=== PATIENT | male | born 1985 | race Two or more races ===

== ENCOUNTER 2024-10-21 15:00 | Outpatient (RCR) | payer MEDICAID, SELFPAY ==
--- NOTE | 2024-10-11 12:53 | PT.ODAYNRPT ---
PT Outpatient Daily Note OP Daily Note Outpatient Physical Therapy Treatment Date: 10/11/24 Visit Reasons: Pain in Ankle Subjective: Pt recently seen doctor and he wants patient to continue physical therapy for disability purposes. Overall ankle is feeling better no new concerns to report Objective: Please see flow chart for list of ther ex performed Assessment: added more balance exercises using airex foam with good dynamic balance noted Plan: Continue with PT Length of Time (minutes) of Treatment: 30 Minutes Procedure Charges Therapeutic Exercise 30 minutes: Yes
--- NOTE | 2024-10-14 10:06 | PT.ODAYNRPT ---
PT Outpatient Daily Note OP Daily Note Outpatient Physical Therapy Treatment Date: 10/14/24 Visit Reasons: Pain in Ankle Subjective: No new complaints or concerns. Objective: Please see flow sheet for ther ex list. Assessment: Focus on restoring motion and strength, pt tolerated interventions wwell. Plan: Continue with POC. Length of Time (minutes) of Treatment: 30 Minutes Procedure Charges Therapeutic Exercise 30 minutes: Yes
--- NOTE | 2024-10-18 09:35 | PT.ODAYNRPT ---
PT Outpatient Daily Note OP Daily Note Outpatient Physical Therapy Treatment Date: 10/18/24 Visit Reasons: Pain in Ankle Subjective: Pt reports ankle is progressing. Objective: Please see flow sheet for ther ex list. Assessment: Instructed pt on forward lunge, pt able to completed with good technique. Plan: Continue with POC. Length of Time (minutes) of Treatment: 30 Minutes Procedure Charges Therapeutic Exercise 30 minutes: Yes
--- NOTE | 2024-10-21 15:24 | PT.ODAYNRPT ---
PT Outpatient Daily Note OP Daily Note Outpatient Physical Therapy Treatment Date: 10/21/24 Visit Reasons: Pain in Ankle Subjective: Pt's ankle is better and does not have any concerns. Objective: Please see flow chart for list of ther ex performed Assessment: tolerate exercises performed with minimal pain Plan: Continue with PT Length of Time (minutes) of Treatment: 30 Minutes Procedure Charges Therapeutic Exercise 30 minutes: Yes
--- NOTE | 2024-11-21 12:51 | PTNOTE_ITS ---
PT OP Progress/Discharge Note Date of Service: 11/21/24 Progress Note/DC Note Progress Note/Discharge Note: DC Note Patient Information Visit Reasons: Pain in Ankle Service Discharge Date: 11/21/24 Status Assessment: Pt has been seen for 7 visits (eval + 6 visits). Pt last treated on 10/21/24 and has not return to therapy. At this time Pt will be d/c from care due to non- compliance per attendance policy. Pt did not meet set goals in therapy; thank you for your referrals
== END 2024-10-29 23:59 | disposition home or self-care (01) ==
LOC: CPTX 15:00
PROVIDERS: PCP Podiatrist; Referring Provider Podiatrist; Visit Provider Podiatrist
DX: M25.572 Pain in left ankle and joints of left foot (principal); R26.2 Difficulty in walking, not elsewhere classified; R53.1 Weakness; G89.29 Other chronic pain
CPT/HCPCS: 97110

== ENCOUNTER 2025-03-05 19:11 | Emergency (ER) | payer MEDICAID, SELFPAY ==
[2025-03-05 19:13] VITALS: BMI 29.8
[2025-03-05 19:30] VITALS: BP 116/74; PULSE 71; RESP 20; TEMP 36.6; O2SAT 98
--- NOTE | 2025-03-05 20:54 | PC.NURSE ---
STAFF CALLED PATIENT IN THE LOBBY AND OUTSIDE. PER SECURITY STAFF PATIENT AND FAMILY STATED THAT THEY WERE LEAVING BECAUSE THE WAIT WAS GOING TO BE TOO LONG HERE. THAT THEY WERE GOING TO GO SOMEWHERE ELSE.
--- NOTE | 2025-03-05 21:04 | PD.EDADDENDU ---
Emergency Room Addendum Addendum Narrative: I was told the patient eloped before I saw the patient. Issa Rodrigez MD
== END 2025-03-05 21:04 | disposition left against medical advice (07) ==
PROVIDERS: Emergency Provider Emergency Medicine
DX: Z53.21 Procedure and treatment not carried out due to patient leaving prior to being seen by health care provider (principal)
CPT/HCPCS: 99281

== ENCOUNTER → 2025-03-21 | Outpatient (CLI) | payer MEDICAID, SELFPAY ==
--- NOTE | 2025-03-21 10:01 | XR_ITS ---
Examination: CT chest with intravenous contrast CT abdomen with intravenous contrast CT pelvis with intravenous contrast CT chest without intravenous contrast CT abdomen without intravenous contrast CT pelvis without intravenous contrast 2-D coronal and sagittal reconstructions Time of exam: March 21, 2025 1149 hours INDICATIONS: Bilateral leg pain history pelvic lesion beginning January 2025 CTDI: vol (mGy) : 13.9 DLP: (mGycm): 1069 Technique: Multiple axial images of the chest, abdomen and pelvis with intravenous contrast, 3.0 mm slice thickness. Images obtained post intravenous injection Isovue 370 60 cc. 2-D sagittal and coronal reconstructions. Low dose protocols were performed. One or more of the following dose reduction techniques were used; automated exposure control, adjustment of the mA and/or KV according to patient size, use of iterative reconstruction technique. Findings: 12 mm higher left periaortic lymph node 24 mm left tracheobronchial lymph node Mild left hilar lymphadenopathy 14 mm nodule spiculated margins left midlung image 1:30 No pneumonia or pulmonary edema No focal liver or splenic lesions No gallstones No pancreatic or adrenal mass No renal or ureteral calculi Abundant pericaval periaortic lymphadenopathy, the largest lymph node left lateral periaortic measuring 36 mm Extensive common iliac internal iliac and especially left external iliac lymphadenopathy No bowel obstruction Urinary bladder intact Prostatomegaly AP dimension 4.8 cm with enhancing nodule anterior right margin of the prostate 25 mm Subtle diffuse osteolytic lesions involving vertebral bodies, ribs, bones of the pelvis IMPRESSION: Significant mediastinal lymphadenopathy 14 mm nodule spiculated margins left midlung Extensive abdominal and pelvic lymphadenopathy 25 mm enhancing right prostate nodule Diffuse osteolytic lesions, consider MRI cervical thoracic lumbar spine post contrast follow-up Differential would include metastatic lymphadenopathy, Hodgkin's disease, non-Hodgkin's lymphoma
== END | disposition home or self-care (01) ==
LOC: CCTX 09:43
PROVIDERS: PCP Physician Assistant Medical; Referring Provider Physician Assistant Medical; Visit Provider Physician Assistant Medical
DX: R59.0 Localized enlarged lymph nodes (principal); R91.1 Solitary pulmonary nodule; N40.2 Nodular prostate without lower urinary tract symptoms; M89.58 Osteolysis, other site
CPT/HCPCS: 71270; 74178; A4649; Q9967

== ENCOUNTER 2025-03-27 14:02 | Outpatient (RCR) | payer MEDICAID, SELFPAY | END 2025-03-29 23:59 | disposition home or self-care (01) | LOC: SCTC 14:02 | PROVIDERS: PCP Physician Assistant Medical; Referring Provider Physician Assistant Medical; Visit Provider Radiology Therapeutic Radiology | DX: C61 Malignant neoplasm of prostate (principal); C79.51 Secondary malignant neoplasm of bone | CPT/HCPCS: 99214; G0463 ==

== ENCOUNTER → 2025-03-28 | Outpatient (CLI) | payer MEDICAID, SELFPAY ==
--- NOTE | 2025-03-28 15:30 | XR_ITS ---
EXAMINATION: PET/CT FUSION SKULL TO THIGH EXAM DATE AND TIME: March 28, [address] chest abdomen pelvis March 21, 2025 INDICATIONS: Diagnosis prostate cancer, staging prior to treatment CTDI:vol (mGy) 5.19 DLP: (mGycm) 474 PROCEDURE: 16.5 mCi FDG was administered intravenously To allow for distribution and uptake of radiotracer, the patient was allowed to rest quietly in a shielded room. Imaging was performed on an integrated 16-slice PET/CT scanner, with scanning from the skull base to the mid thigh. Serum blood glucose at the time of the injection was measured 110 mg/dL. CT scanning was performed without oral or intravenous contrast material. FINDINGS: Head and Neck: There is no kai hypermetabolism in the neck. The visualized portions of the brain are normal in appearance on CT. Chest: Non hypermetabolic high periaortic bilateral hilar lymphadenopathy Weakly hypermetabolic 24 mm nodule left midlung axial image 91 Abdomen and Pelvis: Extensive weakly hypermetabolic abdominal and pelvic lymphadenopathy, the largest left lateral periaortic lymph node measuring 36 mm Extensive common iliac internal iliac and especially left external iliac lymphadenopathy, the largest lymph node in the pelvis is in the external iliac chain on the left measuring 30 mm hypermetabolic Diffusely weakly hypermetabolic prostate nodules Musculoskeletal: All visualized bones demonstrate hypermetabolic activity. IMPRESSION: Extensive metastatic mediastinal, abdominal and pelvic lymphadenopathy as above Widespread osseous metastatic disease
== END | disposition home or self-care (01) ==
PROVIDERS: PCP Physician Assistant Medical; Referring Provider Physician Assistant Medical; Visit Provider Physician Assistant Medical
DX: R59.0 Localized enlarged lymph nodes (principal); C79.9 Secondary malignant neoplasm of unspecified site; C79.51 Secondary malignant neoplasm of bone
CPT/HCPCS: 78815; A9552

== ENCOUNTER 2025-03-30 08:07 | Outpatient (CLI) | payer MEDICAID, SELFPAY ==
[2025-03-29 11:10] LABS: Basophils % (Auto) 1 % (0-2.5); Eosinophils # (Auto) 0.1 Thou/mm3 (0.0-0.5); Eosinophils % (Auto) 1 % (0-10); Hematocrit 22.4 % (41.0-53.0); Immature Granulocytes % (Auto) 11 % (0-0); Lymphocytes # (Auto) 1.8 Thou/mm3 (1.0-4.8); Lymphocytes % (Auto) 25 % (10-50); Mean Corpuscular HGB Conc 34.4 g/dl (31.0-37.0); Mean Corpuscular Hemoglobin 26.9 pg (25.0-35.0); Mean Corpuscular Volume 78 fL (80-100); Monocytes # (Auto) 0.8 Thou/mm3 (0.0-0.8); Monocytes % (Auto) 11 % (0-12); Neutrophils # (Auto) 3.6 Thou/mm3 (1.8-7.7); Neutrophils % (Auto) 51 % (37-80); Nucleated Red Blood Cell # 0.29 Thou/mm3 (0.00-0.00); Nucleated Red Blood Cell % 4 /100 WBC (0); RDW Standard Deviation 42.4 fL (35.1-43.9); Red Blood Count 2.86 Miln/mm3 (4.50-5.90); White Blood Count 7.1 Thou/mm3 (3.8-10.6)
[2025-03-29 11:15] LABS: Hemoglobin 7.7 g/dL (13.5-16.0); Platelet Count 60 Thou/mm3 (140-440)
[2025-03-29 11:16] LABS: INR 1.2 (0.9-1.3); Partial Thromboplastin Time 36.2 Seconds (22.0-36.0); Prothrombin Time 12.6 Seconds (9.0-12.2)
[2025-03-29 13:06] LABS: Slide Review Platelets confirmed
[2025-03-29 13:10] LABS: Path Review Blood Smear Sent to Pathologist
[2025-03-30] VITALS (8 sets, daily range): BP systolic 124–147; BP diastolic 71–88; PULSE 98–107; RESP 18–100; TEMP 36.7–36.9; O2SAT 20–98; BMI 27.7
--- NOTE | 2025-03-30 08:30 | XR_ITS ---
Examination: Transrectal prostate biopsies Transrectal prostate sonography Exam date and time: March 30, 2025 at 0904 hours INDICATIONS: Diagnosis prostate cancer, staging prior to treatment, widespread mediastinal abdominal pelvic lymphadenopathy osseous metastatic disease on PET CT scan March 28, 2025 TECHNIQUE AND FINDINGS: Informed consent provided. Timeout performed. Utilizing ultrasonographic guidance 3 core biopsies obtained of the right lobe the prostate and 3 core biopsies obtained left lobe of the prostate Estimated blood loss 2 cc Patient stable condition at completion procedure IMPRESSION: Successful ultrasound-guided transrectal prostate biopsies
[2025-03-30] MEDS: fentaNYL CIT INJ 50 mCg/ML AMP 2ML IVP (09:20)
[2025-03-30] MEDS: LIDOCAINE JELLY 2% (Urojet) 10 ML TUBE TOP (09:20)
--- NOTE | 2025-03-30 11:23 | PC.NURSE ---
0938: Pt received for recovery. Report from Missy SINGLETON. Pt groggy, but awake. Resp even, unlabored. VS stable. Denies pain. 1005: Pt more alert. VS stable. Denies pain. Sitting up tolerating po fluids with no difficulty swallowing and no n/v. at bedside. 1025: Pt stated he needed to use restroom. Assisted to restroom. Ambulation steady. 1055: Pt has been in restroom. Unable to void. Pt assisted back to [facility]. Bladder palpated and is soft. Dr. García notified. New order to send to ER for follow up. 1100: Pt transferred to ER. Report to Isabella SINGLETON.
== END 2025-03-30 11:00 | disposition home or self-care (01) ==
PROVIDERS: Radiology Diagnostic Radiology; PCP Physician Assistant Medical; Referring Provider Physician Assistant Medical; Visit Provider Physician Assistant Medical
DX: C61 Malignant neoplasm of prostate (principal); N42.32 Atypical small acinar proliferation of prostate; Z01.812 Encounter for preprocedural laboratory examination
CPT/HCPCS: 55700; 36415; 76942; 85025; 85610; 85730; A4649; J3010

== ENCOUNTER 2025-03-30 11:17 | Inpatient (IN) | payer MEDICAID, SELFPAY ==
[2025-03-30] VITALS (11 sets, daily range): BP systolic 132–157; BP diastolic 73–93; PULSE 87–117; RESP 16–28; TEMP 36.1–37.4; O2SAT 93–98; BMI 27.9; BMI 28.1
--- NOTE | 2025-03-30 11:30 | EDNOTE_ITS ---
ED General RME/HPI General Chief complaint: Urogenital-Male Stated complaint: DIFFICULTY URINATING S/P PROSTATE BIOPSY Time Seen by Provider: 03/30/25 11:20 Arrival date/time: 03/30/25 11:17 RME / HPI RME / HPI narrative: 39-year-old male patient with significant history of prostate problem, was sent to us from [facility] status post prostate biopsy. Patient was noted to have blood with urination post prostate biopsy. Patient also complained of passing blood clots, with urination. Also complained of unable to urinate from time to time. Patient also complaining of diarrhea after the biopsy. Denies any abdominal pain denies any chest pain denies any other complaints. Patient is ambulatory. With a walker Related Data Allergies Allergy/AdvReac Type Severity Reaction Status Date / Time cephalexin Allergy Rash Verified 03/30/25 09:48 Review of Systems Review of Systems Narrative Review of Systems: Review of system reviewed and within normal limits except mentioned in HPI ED Exam Narrative Physical exam: VITAL SIGNS: Reviewed. GENERAL APPEARANCE: Alert and interactive, follows commands, no acute distress, HEAD AND FACE: Non-traumatic. ENT: PERRL, pink conjunctivitis, eyelid no trauma, Mucous membrane moist. NECK: Supple, nontender, no nuchal rigidity. CHEST: No tenderness, no crepitus, no paradoxical movement, no retractions. LUNGS: Clear, well ventilated, symmetric, no rales, no wheezing, no ronchi, no stridor, good breath sounds bilaterally. HEART: Regular rate, regular rhythm, no murmur, no gallops. ABDOMEN: Soft, positive bowel sounds, nondistended, no guarding, nontender, no rebound, no masses, RECTAL: Deferred. GENITAL: Deferred. NEUROLOGICAL: Gross motor function intact sensory function intact, Appropriate for age. MUSCULOSKELETAL: low back nontender, full range of motion. EXTREMITIES: Nontender, full range of motion. SKIN: Color pink, dry, no rash, no lacerations, no abrasions, no contusions. LYMPHATICS: Deferred. Course Quality Measures none Orders Category Date Time Status Admit to Inpatient Status Routine Admission 03/30/25 15:11 Active Patient Condition Routine Admission 03/30/25 15:11 Ordered Continuous Bladder Irrigation QSHIFT Care 03/30/25 14:24 Active Clifton [Urinary Catheter] QS Care 03/30/25 14:22 Active Notify provider NEEDED Care 03/30/25 15:11 Active Sequential Compression Device QSHIFT Care 03/30/25 15:11 Active Strict Intake and Output Routine Care 03/30/25 15:12 Ordered Transfuse,blood/blood products ONCE Care 03/30/25 12:45 Active Consult to Oncology Stat Cons 03/30/25 15:17 Ordered Consult to Urology Stat Cons 03/30/25 14:22 Active Diet Regular Diet 03/30/25 Dinner Active CBC AM DRAW Lab 03/31/25 05:00 Ordered CBC AM DRAW Lab 04/01/25 05:00 Ordered CBC AM DRAW Lab 04/02/25 05:00 Ordered CBC AM DRAW Lab 04/03/25 05:00 Ordered CBC AM DRAW Lab 04/04/25 05:00 Ordered CBC [CBC] Stat Lab 03/30/25 12:00 Completed CMP [Comprehensive Metabolic Panel] Stat Lab 03/30/25 12:00 Completed Comprehensive Metabolic Panel AM DRAW Lab 03/31/25 05:00 Ordered Comprehensive Metabolic Panel AM DRAW Lab 04/01/25 05:00 Ordered Comprehensive Metabolic Panel AM DRAW Lab 04/02/25 05:00 Ordered Comprehensive Metabolic Panel AM DRAW Lab 04/03/25 05:00 Ordered Comprehensive Metabolic Panel AM DRAW Lab 04/04/25 05:00 Ordered Hemoglobin A1C [Glycohemoglobin w (eAG)] Routine Lab 03/30/25 15:23 Completed Lipid Panel AM DRAW Lab 03/31/25 05:00 Ordered Magnesium AM DRAW Lab 03/31/25 05:00 Ordered Magnesium AM DRAW Lab 04/01/25 05:00 Ordered Magnesium AM DRAW Lab 04/02/25 05:00 Ordered Phosphorous AM DRAW Lab 03/31/25 05:00 Ordered Phosphorous AM DRAW Lab 04/01/25 05:00 Ordered Phosphorous AM DRAW Lab 04/02/25 05:00 Ordered Reticulocyte Count Stat Lab 03/30/25 12:00 Completed Thyroid Stimulating Hormone AM DRAW Lab 03/31/25 05:00 Ordered Type and Screen Stat Lab 03/30/25 14:03 Results UA, C/S IF [Urinalysis, C/S if Indicated] Stat Lab 03/30/25 14:08 Completed Urine Culture Stat Lab 03/30/25 14:08 Received prbc [Red Blood Cells] Stat Lab 03/30/25 14:03 Results Acetaminophen Tab [Tylenol Tab] Med 03/30/25 15:11 Active 650 mg PO Q6H PRN Finasteride [Proscar] Med 03/30/25 14:29 Discontinued 5 mg PO X1 ONE HYDROcodone/APAP 10/325 [[place] 10/325] Med 03/30/25 15:11 Active 1 tab PO Q6HR PRN Ondansetron Inj [Zofran Inj] Med 03/30/25 15:11 Active 4 mg IV Q6H PRN Ringers Lactated 1000 ml [Lactated Ringers] 1,000 ml Med 03/30/25 11:29 Discontinued IV 999 mls/hr Sodium Chloride 0.9% 1000 ml [Ns] 1,000 ml Med 03/30/25 15:12 Active IV 100 mls/hr Tranexamic Acid 1,000 mg Ivpb [Tranexamic Acid Ivpb] Med 03/30/25 14:30 Discontinued 1,000 mg in 100 ml IV X1 Code Status Routine Oth 03/30/25 15:11 Ordered Vital Signs Vital signs: Vital Signs Temperature 99.0 F 03/30/25 11:29 Pulse Rate 105 H 03/30/25 11:29 Respiratory Rate 28 H 03/30/25 11:29 Blood Pressure 157/85 H 03/30/25 11:29 Pulse Oximetry (%) 96 03/30/25 11:29 Oxygen Delivery Method Room Air 03/30/25 11:29 Discharge Plan Plan Patient Disposition: Admit Acute Care w/in Hospital Discharge Disposition comment: stable Problem List Clinical Impression: Hematuria, Hx of prostate biopsy MDM Narrative Sign Out note: 39-year-old male patient with significant history of prostate problem, was sent to us from [facility] status post prostate biopsy. Patient was noted to have blood with urination post prostate biopsy. Patient also complained of passing blood clots, with urination. Also complained of unable to urinate from time to time. Patient also complaining of diarrhea after the biopsy. Denies any abdominal pain denies any chest pain denies any other complaints. I spoke with urologist, Dr. Bird ,, thank you Dr Bird, who advised me to put three-way Clifton and start continuous bladder irrigation. Start patient on finasteride also. Patient's hemoglobin today was noted to be 6.02 units of packed RBC was started. Patient was also given IV fluids. Patient was started on finasteride and tranexamic acid also. Patient will be admitted to service of hospitalist, mirandanaged with Dr. Bird Labs Lab(s) Interpretation(s): Patient's hemoglobin was noted to be 6.0 hematocrit of 17.5 urinalysis significant for hematuria but no UTI Medication Administration(s) Medication Administration History Acetaminophen (Acetaminophen 325 Mg Tablet) 650 mg PO Q6H PRN PRN Reason: PAIN 1-3 OR FEVER > 100.4 Stop: 04/29/25 15:10 Hydrocodone Bitart/Acetaminophen (Hydrocodone/Apap 10/325 Tab) 1 tab PO Q6HR PRN PRN Reason: PAIN SCALE 4-6 (Moderate Stop: 04/04/25 15:10 Dextrose (Dextrose 50%-Water Inj 50 Ml Syringe) 25 ml IV Q15MIN PRN PRN Reason: BG 50-70 responsive npo pt Stop: 04/29/25 15:59 Dextrose (Dextrose 50%-Water Inj 50 Ml Syringe) 50 ml IV Q15MIN PRN PRN Reason: BG <50 OR BG <70 & pt unresponsive Stop: 04/29/25 15:59 Finasteride (Finasteride 5 Mg Tablet) 5 mg PO QDAY JUDY Stop: 04/30/25 08:59 Glucagon (Glucagon Inj 1 Mg Vial) 1 mg IM Q15MIN PRN PRN Reason: BG <70, and no IV access Sodium Chloride (Ns) 1,000 mls @ 100 mls/hr IV .Q10H ONE Stop: 03/31/25 01:11 Last Admin: 03/30/25 15:37 Dose: 100 mls/hr Documented By: ER Insulin Human Lispro (Insulin Lispro (Admelog) 1 Unit/0.01 Ml Unit) 0 unit SC AC [facility]; Protocol Stop: 04/29/25 16:59 Lisinopril (Lisinopril 2.5 Mg Tablet) 5 mg PO QDAY JUDY Stop: 04/29/25 15:44 Ondansetron HCl (Ondansetron Inj 2 Mg/Ml Inj 2 Ml) 4 mg IV Q6H PRN; Protocol PRN Reason: NAUSEA OR VOMITING Stop: 04/29/25 15:10 Discontinued Medications Finasteride (Finasteride 5 Mg Tablet) 5 mg PO X1 ONE Stop: 03/30/25 14:30 Lactated Ringer's (Lactated Ringers) 1,000 mls @ 999 mls/hr IV .Q1H1M ONE Stop: 03/30/25 12:29 Last Infusion: 03/30/25 13:00 Dose: Infused Documented By: Admin: 03/30/25 11:51 Dose: 999 mls/hr Documented By: ER Tranexamic Acid (Tranexamic Acid Ivpb) 1,000 mg in 100 mls @ 200 mls/hr IV X1 ONE Stop: 03/30/25 14:59 Last Infusion: 03/30/25 16:06 Dose: Infused Documented By: Admin: 03/30/25 15:36 Dose: 200 mls/hr Documented By: ER Lidocaine HCl (Lidocaine Jelly 2% (Urojet) 10 Ml Tube) 0 ml TOP X1 ONE Stop: 03/30/25 16:14 Last Admin: 03/30/25 16:31 Dose: 10 ml Documented By: ER Diagnosis Differential Diagnosis ED Complaint MDM: Hematuria, status post prostate biopsy trans rectal Diagnoses ruled out and/or further discussions: Hematuria status post rectal biopsy
[2025-03-30] MEDS: RINGERS LACTATED 1000 ML 1,000 ML 999 ML IV (11:51)
[2025-03-30 12:25] LABS: Basophils % (Auto) 0 % (0-2.5); Eosinophils % (Auto) 0 % (0-10); Immature Granulocytes % (Auto) 7 % (0-0); Immature Granulocytes Auto 0.42 Thou/mm3 (0.00-0.00); Lymphocytes # (Auto) 1.3 Thou/mm3 (1.0-4.8); Lymphocytes % (Auto) 22 % (10-50); Mean Corpuscular HGB Conc 34.3 g/dl (31.0-37.0); Mean Corpuscular Hemoglobin 26.4 pg (25.0-35.0); Mean Corpuscular Volume 77 fL (80-100); Monocytes # (Auto) 0.5 Thou/mm3 (0.0-0.8); Monocytes % (Auto) 8 % (0-12); Neutrophils # (Auto) 3.5 Thou/mm3 (1.8-7.7); Neutrophils % (Auto) 62 % (37-80); Nucleated Red Blood Cell # 0.22 Thou/mm3 (0.00-0.00); Nucleated Red Blood Cell % 4 /100 WBC (0); RDW Standard Deviation 41.1 fL (35.1-43.9); Red Blood Count 2.27 Miln/mm3 (4.50-5.90); White Blood Count 5.7 Thou/mm3 (3.8-10.6)
[2025-03-30 12:42] LABS: Alanine Aminotransferase 48 U/L (10-49); Albumin, Serum 3.6 gm/dL (3.5-5.0); Albumin/Globulin Ratio 1.3 (1.2-2.2); Alkaline Phosphatase 127 U/L (46-116); Anion Gap 9 (7-16); Aspartate Amino Transferase 59 U/L (0-34); BUN/Creatinine Ratio 20 Ratio (12-20); Bilirubin,Total 1.4 mg/dL (0.3-1.2); Blood Urea Nitrogen 24 mg/dL (9-23); Calcium 8.6 mg/dL (8.3-10.6); Calcium (Corrected) 8.9 mg/dL (8.5-10.1); Carbon Dioxide 27.6 mMol/L (20.0-31.0); Chloride 92 mMol/L (98-107); Creatinine (Component) 1.2 mg/dL (0.6-1.3); Estimated Creatinine Clearance 79.8 mL/min (>60); Globulin 2.7 gm/dL (2.3-3.5); Glucose 129 mg/dL (74-106); Osmolality,Calculated 264 (275-295); Potassium 4.4 mMol/L (3.4-5.1); Sodium 129 mMol/L (136-145); Total Protein 6.3 gm/dL (5.7-8.2); eGFR > 60 See Note
[2025-03-30 12:45] LABS: Hematocrit 17.5 % (41.0-53.0); Platelet Count 51 Thou/mm3 (140-440)
[2025-03-30 14:18] LABS: Collection Type, Urine Clean Catch; Squamous Epithelial Cell,Urine 0 /hpf (0-5); WBC,Urine 0 /hpf (0-5)
[2025-03-30 14:53] LABS: Slide Review Platelets confirmed
[2025-03-30 15:02] LABS: RBC,Urine 4961 /hpf (0-3)
[2025-03-30 15:15] LABS: Bilirubin,Urine 1+ (Negative); Blood,Urine 3+ (Negative); Clarity,Urine Cloudy (Clear/Hazy); Color,Urine Drk Red (Lt Yel-Yel); Culture Indicated,Urine Yes; Glucose, Urine Negative (Negative); Ketones,Urine 1+ (Negative); Leukocyte Esterase,Urine 2+ (Negative); Nitrite,Urine Positive (Negative); PH,Urine 6.5 (5.0-7.0); Protein,Urine 3+ (Neg - Trace)
--- NOTE | 2025-03-30 15:19 | ESHP_ITS ---
Documentation for date of: 03/30/25 [facility] History of Present Illness History of present illness: Justin Parks is a 39-year-old male with no reported past medical history who presents after obtaining transrectal prostate biopsy on same day. Underwent biopsy that was uneventful here at [facility] at approximately 8:30 AM and sent to ED from [facility] after noting difficulty urinating, passing large blood clot with intermittent bloody urine, and bloody stool. Upon evaluation, patient denies having any abdominal or genitourinary pain, lightheadedness, or palpitations. He also states that though difficult, he is able to urinate intermittently and has noticed less blood over time. Reason for biopsy was for evaluation of extensive metastatic mediastinal, abdominal, and pelvic lymphadenopathy as well as widespread osseous metastatic disease seen on PET scan on 03/28/2025. Patient states that his first presenting symptom was back and leg pain for which he obtained CT of the lumbar spine at [facility] that showed findings concerning for malignancy. Endorses 12 pound weight loss within 1 month, night sweats but no fever or chills. States that he is not aware of any family history of cancer, including that of colon or prostate. He states that he has not yet been able to have an office visit with an oncologist. In ED vitals significant for mildly elevated blood pressure of 157/85, tachycardic at 105 bpm, afebrile and on room air. CBC notable for hemoglobin of 6, hematocrit 17.5, MCV 77, platelet 51. CHEM panel showed mild hyponatremia 129, chloride 92, BUN 24, creatinine 1.2, T. bili is 1.4, AST 59, ALT 48, ALP 127. UA showed dark red urine, 3+ blood, 5000 RBC, 3+ protein, LE positive, no bacteria. Given 1 L LR, 2 units PRBC ordered, tranexamic acid x 1 ordered, finasteride 5 mg p.o. x 1. ED provider spoke to and consulted urology already, who advised placement of three-way Clifton, start continuous bladder irrigation, and start on finasteride. He will then see patient today or tomorrow. Admitted for further management of acute urinary retention s/p transrectal prostatic biopsy, metastatic disease of unknown origin, and microcytic anemia requiring transfusion. PMHx: no reported PMHx but has medications for hypertension, type 2 diabetes mellitus, [place]ever Medications: non reported FHx: no family history of cancer SHx: denies ever smoking, denies alcohol use, denies illicit drug use Review of Systems Review of Systems Systems Reviewed: All systems reviewed, normal except as documented Exam Vital Signs Temp Pulse Resp BP Pulse Ox O2 Del Method 99.0 F 105 H 28 H 146/93 H 96 Room Air 03/30/25 11:29 03/30/25 11:29 03/30/25 11:29 03/30/25 15:09 03/30/25 11:29 03/30/25 11:29 Narrative Exam General: AOx3, no acute distress, able to speak full sentences HEENT: NC/AT, mucous membranes moist, bilateral sclera anicteric Cardiovascular: regular rate and rhythm, S1/S2 present, no murmurs appreciated Pulmonary: clear to auscultation bilaterally, no rales/rhonchi/wheezes Abdominal: soft, non-tender, non-distended, no rebound/guarding, normal bowel sounds present Musculoskeletal: normal ROM, no peripheral edema Skin: warm and dry, intact, no rashes Neuro: CN II-XII intact, no focal deficits Results: Labs 03/31/25 04:55 03/31/25 04:55 Labs: Short CBC 03/30/25 Range/Units 12:00 WBC 5.7 (3.8-10.6) Thou/mm3 Hgb 6.0 L* D (13.5-16.0) g/dL Hct 17.5 L* (41.0-53.0) % Plt Count 51 L (140-440) Thou/mm3 BMP 03/30/25 12:00 Sodium 129 L Potassium 4.4 Chloride 92 L Carbon Dioxide 27.6 BUN 24 H Creatinine 1.2 Glucose 129 H Calcium 8.6 Liver Function 03/30/25 Range/Units 12:00 Total Bilirubin 1.4 H (0.3-1.2) mg/dL AST 59 H (0-34) U/L ALT 48 (10-49) U/L Alkaline Phosphatase 127 H (46-116) U/L Albumin 3.6 (3.5-5.0) gm/dL Urine 03/30/25 Range/Units 14:08 Urine Color Drk Red A (Lt Yel-Yel) Urine Clarity Cloudy A (Clear/Hazy) Urine pH 6.5 (5.0-7.0) Ur Specific [place] 1.010 (1.001-1.035) Urine Protein 3+ A (Neg - Trace) Urine Glucose (UA) Negative (Negative) Quality Measures Quality Measures VTE prophylaxis (SCDs) Medications Home Medications and Allergies Home Medications ?Medication ?Instructions ?Recorded ?Confirmed ?Type hydrocodone 10 mg-acetaminophen 1 tab PO Q6H PRN pain 03/30/25 03/31/25 History 325 mg tablet Allergies Allergy/AdvReac Type Severity Reaction Status Date / Time cephalexin Allergy Rash Verified 03/30/25 09:48 Visit Medications Discontinued Medications Finasteride (Finasteride 5 Mg Tablet) 5 mg PO X1 ONE Stop: 03/30/25 14:30 Lactated Ringer's (Lactated Ringers) 1,000 mls @ 999 mls/hr IV .Q1H1M ONE Stop: 03/30/25 12:29 Last Infusion: 03/30/25 13:00 Dose: Infused Tranexamic Acid (Tranexamic Acid Ivpb) 1,000 mg in 100 mls @ 200 mls/hr IV X1 ONE Stop: 03/30/25 14:59 Assessment & Plan Plan Justin Parks is a 39-year-old male with no reported past medical history who presents after obtaining transrectal prostate biopsy on same day. Admitted for further management of acute urinary retention s/p transrectal prostatic biopsy, metastatic disease of unknown origin, and microcytic anemia requiring transfusion. #Acute urinary retention status post transrectal prostate biopsy #Gross hematuria Sent from [facility] after transrectal prostate biopsy after patient found to have acute urinary retention with associated gross hematuria, passing blood clots, as well as hematochezia. Patient denies pain abdomen or urogenital region. UA significant for dark red urine, 3+ blood, 5000 RBC. ? Urology consulted ? Three-way Clifton with continuous bladder irrigation ? Finasteride 5 mg daily #Acute blood loss anemia #Microcytic anemia Preprocedure hemoglobin 7.7 that dropped to 6.0 with associated gross hematuria and hematochezia after procedure. 2 units PRBC ordered in ED pending transfusion. ? Transfuse 2 units PRBC ? Follow-up posttransfusion H&H ? Follow-up iron panel, ferritin, reticulocyte count, peripheral blood smear #Metastatic disease of unknown origin #Elevated ALP Presenting symptom of back and leg pain and found to have metastatic disease from PET scan on 03/28/2025. As noted above, underwent transrectal prostate biopsy further evaluate. Denies any known family history of cancer. ? Oncology consulted, appreciate recommendations ? Follow-up PSA, CEA, CA 19-9 tumor markers #Hypoosmolar hyponatremia ? 1 L NS at 100 cc/h ? Will monitor with daily labs #Hyperbilirubinemia #Transaminitis ? Denies abdominal pain and will monitor at this time #Type 2 diabetes mellitus A1c 6.1% on 03/30/2025. ? SSI ? Hypoglycemic protocol in place #Hypertension ? Lisinopril 5 mg p.o. daily Hospital management: Disposition: Med telemetry, pending urology and oncology recommendations Fluids: 1 L NS Diet: Regular Lines: PIV DVT prophylaxis: SCDs given gross hematuria GI prophylaxis: Not indicated Clifton: Three-way with continuous irrigation CODE STATUS: full code ----- Plan discussed with attending physician Dr. Lizzette Burr MD PGY-1 Internal Medicine Attending Provider Attestation/Addendum I reviewed labs, imaging, EKG, home medications and prior available records. Face to face evaluation was performed by me. I have personally examined the patient and discussed assessment and plan with the IM team. I reviewed the resident note and agree with the plan with exceptions as below. Acute anemia Hematuria Acute urinary retention Lymphadenopathy Stage IV malignancy of unknown primary essential hypertension Hyponatremia Urology recommended three-way Clifton catheter and finasteride Status post 2 PRBC transfusion. Monitor H&H posttransfusion Continue IV fluids. Monitor sodium level Consulted oncology Send tumor markers
[2025-03-30] MEDS: TRANEXAMIC ACID 1,000 MG IVPB 1,000 MG/100 ML BAG 200 MG IV (15:36)
[2025-03-30] MEDS: SODIUM CHLORIDE 0.9% 1000 ML 1,000 ML 100 ML IV (15:37)
[2025-03-30 15:51] LABS: Glucose Estimated Average 128 mg/dL (80-131); Hemoglobin A1C 6.1 % Hgb (4.8-6.0)
[2025-03-30 15:58] LABS: Immature Reticulocyte Fraction 35.6 % (2.3-13.4); Reticulocyte % (Auto) 3.1 % (0.5-1.5); Reticulocyte Absolute Auto 70.1 Biln/L (25.0-75.0); Reticulocyte Hgb Content 27.1 pg (28.0-35.0)
[2025-03-30 16:17] LABS: Carcinoembryonic Antigen 4.9 ng/mL (0.0-5.0)
[2025-03-30] MEDS: LIDOCAINE JELLY 2% (Urojet) 10 ML TUBE TOP (16:31)
[2025-03-30 16:39] LABS: Iron 21 mcg/dL (65-175); Percent Iron Saturation 8 % (20-55); Total Iron Binding Capacity 241 mcg/dL (250-425); Unsaturated Iron Binding 220 (225-295)
[2025-03-30 17:18] LABS: Ferritin 4052 ng/mL (10.5-307.3)
[2025-03-30 17:29] LABS: Prostate Specific Antigen 1149.33 ng/mL (0-4.00)
[2025-03-30] MEDS: HYDROcodone/APAP 10/325 TAB PO (20:23)
[2025-03-31] VITALS (10 sets, daily range): BP systolic 118–143; BP diastolic 67–88; PULSE 66–97; RESP 15–19; TEMP 36.1–37.1; O2SAT 92–98
[2025-03-31 02:44] LABS: Hematocrit 24.2 % (41.0-53.0)
[2025-03-31 03:20] LABS: Hemoglobin 8.4 g/dL (13.5-16.0)
[2025-03-31] MEDS: HYDROcodone/APAP 10/325 TAB PO ×4 (03:30→23:00)
[2025-03-31 06:26] LABS: Basophils % (Auto) 1 % (0-2.5); Eosinophils % (Auto) 0 % (0-10); Hematocrit 24.6 % (41.0-53.0); Immature Granulocytes % (Auto) 9 % (0-0); Immature Granulocytes Auto 0.67 Thou/mm3 (0.00-0.00); Lymphocytes # (Auto) 1.8 Thou/mm3 (1.0-4.8); Lymphocytes % (Auto) 24 % (10-50); Mean Corpuscular HGB Conc 35.4 g/dl (31.0-37.0); Mean Corpuscular Hemoglobin 28.2 pg (25.0-35.0); Mean Corpuscular Volume 80 fL (80-100); Monocytes # (Auto) 0.6 Thou/mm3 (0.0-0.8); Monocytes % (Auto) 7 % (0-12); Neutrophils # (Auto) 4.4 Thou/mm3 (1.8-7.7); Neutrophils % (Auto) 59 % (37-80); Nucleated Red Blood Cell # 0.24 Thou/mm3 (0.00-0.00); Nucleated Red Blood Cell % 3 /100 WBC (0); RDW Standard Deviation 43.4 fL (35.1-43.9); Red Blood Count 3.09 Miln/mm3 (4.50-5.90); White Blood Count 7.5 Thou/mm3 (3.8-10.6)
[2025-03-31 06:33] LABS: Hemoglobin 8.7 g/dL (13.5-16.0); Platelet Count 59 Thou/mm3 (140-440)
[2025-03-31 07:01] LABS: Alanine Aminotransferase 39 U/L (10-49); Albumin, Serum 3.6 gm/dL (3.5-5.0); Albumin/Globulin Ratio 1.3 (1.2-2.2); Alkaline Phosphatase 119 U/L (46-116); Anion Gap 12 (7-16); Aspartate Amino Transferase 47 U/L (0-34); BUN/Creatinine Ratio 19 Ratio (12-20); Bilirubin,Total 1.4 mg/dL (0.3-1.2); Blood Urea Nitrogen 19 mg/dL (9-23); Calcium 8.9 mg/dL (8.3-10.6); Calcium (Corrected) 9.2 mg/dL (8.5-10.1); Carbon Dioxide 24.8 mMol/L (20.0-31.0); Chloride 97 mMol/L (98-107); Cholesterol 143 mg/dL (132-200); Estimated Creatinine Clearance 96.1 mL/min (>60); Globulin 2.7 gm/dL (2.3-3.5); Glucose 109 mg/dL (74-106); HDL Cholesterol 24 mg/dL (40-60); LDL Cholesterol,Calculated 94 mg/dL (0-130); Magnesium 1.8 mg/dL (1.6-2.6); Osmolality,Calculated 271 (275-295); Phosphorous 4.4 mg/dL (2.4-5.1); Potassium 4.2 mMol/L (3.4-5.1); Sodium 134 mMol/L (136-145); Thyroid Stimulating Hormone 6.42 uIU/mL (0.55-4.78); Total Protein 6.3 gm/dL (5.7-8.2); Triglycerides 127 mg/dL (30-150); eGFR > 60 See Note
[2025-03-31 07:16] LABS: Slide Review Platelets confirmed
[2025-03-31 07:20] LABS: Band Neutrophils (Manual) 4 % (0-6); Lymphocytes (Manual) 20 % (20-44); Metamyelocytes (Manual) 4 % (0-0); Monocytes (Manual) 7 % (2-9); Myelocytes (Manual) 4 % (0-0); Neutrophils (Manual) 61 % (50-70)
--- NOTE | 2025-03-31 08:36 | PD.ONCCONS ---
HPI Data of Consult Requesting Physician: Akil Crocker MD Primary Care Provider: Preeti Pennington PA-C Consult Narrative Reason for consult: Suspected widespread prostate malignancy. History of present illness: Patient is an unfortunate 39-year-old male who has had significant back and lower extremity pain.initially related to be work-related. While traveling back from [place] earlier was evaluated at the emergency room in [place] where PSA was in the 900 range with radiographs suggestive widespread bone mets. Back in [place] area had CT scan chest abdomen pelvis 03/21/2025 showing significant mediastinal adenopathy 14 mm nodule left midlung extensive abdominal and pelvic lymphadenopathy 25 mm enhancing right prostate nodule. PET scan completed 03/28/2025 showed widespread osseous mets with extensive metastatic mediastinal abdominal and pelvic lymphadenopathy. Having significant hematuria hemoglobin was 6.0 March 30, 2025 receiving 2 units. PSA 03/30/2025 was 1149 and hemoglobin improved to 8.4. LFTs mildly elevated 1.4 bili 47 AST alk phos 119. Patient now referred for oncological consultation. cc:: cc: Akil Crocker MD Past Medical History Past Medical History Comments PMH COMMENT: Type 2 diabetes hypertension chronic tendinitis left ankle Meds Home Medications and Allergies Home Medications ?Medication ?Instructions ?Recorded ?Confirmed ?Type hydrocodone 10 mg-acetaminophen 1 tab PO Q6H PRN pain 03/30/25 03/31/25 History 325 mg tablet Allergies Allergy/AdvReac Type Severity Reaction Status Date / Time cephalexin Allergy Rash Verified 03/30/25 09:48 Exam Vital Signs Temp Pulse Resp BP Pulse Ox O2 Del Method O2 Flow Rate 96.9 F 88 19 134/86 H 98 Room Air 87 03/31/25 07:45 03/31/25 08:13 03/31/25 07:45 03/31/25 08:13 03/31/25 07:45 03/31/25 07:45 03/30/25 22:29 Narrative Exam Appearing comfortable lying in no acute distress Results Labs 03/31/25 04:55 03/31/25 04:55 Labs: Short CBC 03/30/25 03/31/25 03/31/25 Range/Units 12:00 02:10 04:55 WBC 5.7 7.5 (3.8-10.6) Thou/mm3 Hgb 6.0 L* D 8.4 L D 8.7 L (13.5-16.0) g/dL Hct 17.5 L* 24.2 L 24.6 L (41.0-53.0) % Plt Count 51 L 59 L (140-440) Thou/mm3 BMP 03/30/25 03/31/25 12:00 04:55 Sodium 129 L 134 L Potassium 4.4 4.2 Chloride 92 L 97 L Carbon Dioxide 27.6 24.8 BUN 24 H 19 Creatinine 1.2 1.0 Glucose 129 H 109 H Calcium 8.6 8.9 Liver Function 03/30/25 03/31/25 Range/Units 12:00 04:55 Total Bilirubin 1.4 H 1.4 H (0.3-1.2) mg/dL AST 59 H 47 H (0-34) U/L ALT 48 39 (10-49) U/L Alkaline Phosphatase 127 H 119 H (46-116) U/L Albumin 3.6 3.6 (3.5-5.0) gm/dL Urine 03/30/25 Range/Units 14:08 Urine Color Drk Red A (Lt Yel-Yel) Urine Clarity Cloudy A (Clear/Hazy) Urine pH 6.5 (5.0-7.0) Ur Specific [place] 1.010 (1.001-1.035) Urine Protein 3+ A (Neg - Trace) Urine Glucose (UA) Negative (Negative) Assessment and Plan Additional Assessment & Plan Additional Plan: 1. Likely prostate CA with widespread mets. PSA 1149 2. Biopsy performed yesterday results pending. I took the liberty of beginning patient on a mild antiandrogen Casodex. 3. Once prostate cancer confirmed and with several days worth of Casodex readily alleviating the flare side effects of leuprolide, this will be started in the next few days. 4. Urologist Dr. Bird reportedly will be seeing patient as well. Cystoscopy may still be helpful to evaluate the site of and possible alleviation of bleeding. 5. Thank you for allowing me to evaluate this patient
--- NOTE | 2025-03-31 10:00 | PC.SS ---
Patient Justin Parks is a 39 Year old male admitted for Acute Urinary retention s/p transrectal. Patient lives at home with his , Breana Rick who reports is his surrogate decision maker, [phone]. Prior to admission patient was able to ambulate with out DME. Patient is able to complete all ADL's independently. Patient's PCP is Preeti Pennington. Pharmacy of choice is [facility]. At time of discharge patient will return home. Patient's will provide transportation. Next of kin, , Breana Rick Discharge plan: Home
[2025-03-31] MEDS: BICALUTAMIDE 50 MG TABLET PO (10:53)
[2025-03-31] MEDS: FINASTERIDE 5 MG TABLET PO (10:54)
--- NOTE | 2025-03-31 11:14 | PD.RESPRO ---
Documentation for date of: 03/31/25 Subjective Subjective Interval history: No acute overnight events noted. Patient seen and examined at bedside, bedside commode and states that he was experiencing significant discomfort while trying to urinate. Clifton container at bedside with nonbloody urine. Denies lightheadedness, shortness of breath, chest discomfort, fever, chills, N/V. Seen by oncologist, Dr. Rodrigez, and started patient on mild antiandrogen (Casodex). Also states that if prostate cancer confirmed can start leuprolide. Additionally, urologist, Dr. iBrd, saw patient and recommended to remove three-way Clifton catheter and to stop irrigation. Will monitor patient for 1 more night and monitor urine output; if continues to have urinary retention, can place Clifton catheter per urology recommendations. Ancitipate discharge within next 24 hours if patient urinating well. Exam Vital Signs Temp Pulse Resp BP Pulse Ox O2 Del Method O2 Flow Rate 96.9 F 88 19 134/86 H 98 Room Air 87 03/31/25 07:45 03/31/25 08:13 03/31/25 07:45 03/31/25 08:13 03/31/25 07:45 03/31/25 07:45 03/30/25 22:29 Narrative Exam General: AOx3, moderate distress from pain while urinating, able to speak full sentences HEENT: NC/AT, mucous membranes moist, bilateral sclera anicteric Cardiovascular: regular rate and rhythm, S1/S2 present, no murmurs appreciated Pulmonary: clear to auscultation bilaterally, no rales/rhonchi/wheezes Abdominal: soft, non-tender, non-distended, no rebound/guarding, normal bowel sounds present Musculoskeletal: normal ROM, no peripheral edema Skin: warm and dry, intact, no rashes Neuro: CN II-XII intact, no focal deficits Objective Labs 04/01/25 04:45 04/01/25 04:45 Labs: Laboratory Results - last 24 hr 03/30/25 03/30/25 03/30/25 12:00 14:03 14:08 WBC 5.7 RBC 2.27 L Hgb 6.0 L* D Hct 17.5 L* MCV 77 L MCH 26.4 MCHC 34.3 RDW Std Deviation 41.1 Plt Count 51 L Neut % (Auto) 62 Lymph % (Auto) 22 [place] % (Auto) 8 Eos % (Auto) 0 Baso % (Auto) 0 Neut # (Auto) 3.5 Lymph # (Auto) 1.3 [place] # (Auto) 0.5 Eos # (Auto) 0.0 Baso # (Auto) 0.0 Immature Gran # (Auto) 0.42 H Absolute Nucleated RBC 0.22 H Immature Gran % 7 H Neutrophils % (Manual) Monocytes % (Manual) Metamyelocytes % Myelocytes % Nucleated RBC % 4 H Band Neutrophils Lymphocytes (Manual) Smear Path Review Cancelled Retic Count (auto) 3.1 H Absolute Retic 70.1 Immature Retic Fraction 35.6 H Retic Hgb Content CHr 27.1 L Sodium 129 L Potassium 4.4 Chloride 92 L Carbon Dioxide 27.6 Anion Gap 9 BUN 24 H Creatinine 1.2 Estim Creat Clear Calc 79.8 eGFR > 60 BUN/Creatinine Ratio [address] Glu mg/dL Hemoglobin A1c Calculated Osmolality 264 L Calcium 8.6 Corrected Calcium 8.9 Phosphorus Magnesium Iron TIBC Iron Saturation Unsat Iron Binding Ferritin Total Bilirubin 1.4 H AST 59 H ALT 48 Alkaline Phosphatase 127 H Total Protein 6.3 Albumin 3.6 Globulin 2.7 Albumin/Globulin Ratio 1.3 Triglycerides Cholesterol LDL Cholesterol, Calc HDL Cholesterol Cholesterol/HDL Ratio Carcinoembryonic Ag 4.9 Prostate Specific Ag TSH Free T4 Ur Collection Type Clean Catch Urine Color Drk Red A Urine Clarity Cloudy A Urine pH 6.5 Ur Specific [place] 1.010 Urine Protein 3+ A Urine Glucose (UA) Negative Urine Ketones 1+ A Urine Blood 3+ A Urine Nitrite Positive A Urine Bilirubin 1+ A Urine Urobilinogen (Auto) 1.0 Ur Leukocyte Esterase 2+ A Urine RBC 4961 H Urine WBC 0 Ur Squamous Epith Cells 0 Urine Bacteria None Ur Culture Indicated? Yes Misc Test Result Platelets confirmed Blood Type A Positive Antibody Screen NEGATIVE Crossmatch See Detail Blood Bank Wristband ID Yes 03/30/25 03/30/25 03/31/25 15:23 15:40 02:10 WBC RBC Hgb 8.4 L D Hct 24.2 L MCV MCH MCHC RDW Std Deviation Plt Count Neut % (Auto) Lymph % (Auto) [place] % (Auto) Eos % (Auto) Baso % (Auto) Neut # (Auto) Lymph # (Auto) [place] # (Auto) Eos # (Auto) Baso # (Auto) Immature Gran # (Auto) Absolute Nucleated RBC Immature Gran % Neutrophils % (Manual) Monocytes % (Manual) Metamyelocytes % Myelocytes % Nucleated RBC % Band Neutrophils Lymphocytes (Manual) Smear Path Review Retic Count (auto) Absolute Retic Immature Retic Fraction Retic Hgb Content CHr Sodium Potassium Chloride Carbon Dioxide Anion Gap BUN Creatinine Estim Creat Clear Calc eGFR BUN/Creatinine Ratio Glucose Estimated Ave Glu mg/dL 128 Hemoglobin A1c 6.1 H Calculated Osmolality Calcium Corrected Calcium Phosphorus Magnesium Iron 21 L TIBC 241 L Iron Saturation 8 L Unsat Iron Binding 220 L Ferritin 4052 H Total Bilirubin AST ALT Alkaline Phosphatase Total Protein Albumin Globulin Albumin/Globulin Ratio Triglycerides Cholesterol LDL Cholesterol, Calc HDL Cholesterol Cholesterol/HDL Ratio Carcinoembryonic Ag Prostate Specific Ag 1149.33 H TSH Free T4 Ur Collection Type Urine Color Urine Clarity Urine pH Ur Specific [place] Urine Protein Urine Glucose (UA) Urine Ketones Urine Blood Urine Nitrite Urine Bilirubin Urine Urobilinogen (Auto) Ur Leukocyte Esterase Urine RBC Urine WBC Ur Squamous Epith Cells Urine Bacteria Ur Culture Indicated? [facility] Test Result Blood Type Antibody Screen [facility] Blood Bank Wristband ID 03/31/25 04:55 WBC 7.5 RBC 3.09 L Hgb 8.7 L Hct 24.6 L MCV 80 MCH 28.2 MCHC 35.4 RDW Std Deviation 43.4 Plt Count 59 L Neut % (Auto) 59 Lymph % (Auto) 24 [place] % (Auto) 7 Eos % (Auto) 0 Baso % (Auto) 1 Neut # (Auto) 4.4 Lymph # (Auto) 1.8 [place] # (Auto) 0.6 Eos # (Auto) 0.0 Baso # (Auto) 0.0 Immature Gran # (Auto) 0.67 H Absolute Nucleated RBC 0.24 H Immature Gran % 9 H Neutrophils % (Manual) 61 Monocytes % (Manual) 7 Metamyelocytes % 4 H Myelocytes % 4 H Nucleated RBC % 3 H Band Neutrophils 4 Lymphocytes (Manual) 20 Smear Path Review Retic Count (auto) Absolute Retic Immature Retic Fraction Retic Hgb Content CHr Sodium 134 L Potassium 4.2 Chloride 97 L Carbon Dioxide 24.8 Anion Gap 12 BUN 19 Creatinine 1.0 Estim Creat Clear Calc 96.1 eGFR > 60 BUN/Creatinine Ratio 19 [address]ucose [address] Glu mg/dL Hemoglobin A1c Calculated Osmolality 271 L Calcium 8.9 Corrected Calcium 9.2 Phosphorus 4.4 Magnesium 1.8 Iron TIBC Iron Saturation Unsat Iron Binding Ferritin Total Bilirubin 1.4 H AST 47 H ALT 39 Alkaline Phosphatase 119 H Total Protein 6.3 Albumin 3.6 Globulin 2.7 Albumin/Globulin Ratio 1.3 Triglycerides 127 Cholesterol 143 LDL Cholesterol, Calc 94 HDL Cholesterol 24 L Cholesterol/HDL Ratio 6.0 Carcinoembryonic Ag Prostate Specific Ag TSH 6.42 H Free T4 1.20 Ur Collection Type Urine Color Urine Clarity Urine pH Ur Specific [place] Urine Protein Urine Glucose (UA) Urine Ketones Urine Blood Urine Nitrite Urine Bilirubin Urine Urobilinogen (Auto) Ur Leukocyte Esterase Urine RBC Urine WBC Ur Squamous Epith Cells Urine Bacteria Ur Culture Indicated? Misc Test Result Platelets confirmed Blood Type Antibody Screen Crossmatch Blood Bank Wristband ID Quality Measures Quality Measures VTE prophylaxis (SCDs) Assessment & Plan Assessment Current Active Medications: Generic Name Dose Route Start Last Admin Trade Name Freq PRN Reason Stop Dose Admin Acetaminophen 650 mg 03/30/25 15:11 Acetaminophen 325 Mg Tablet PO 04/29/25 15:10 Q6H PRN PAIN 1-3 OR FEVER > 100.4 Hydrocodone Bitart/Acetaminophen 1 tab 03/30/25 15:11 03/31/25 10:44 Hydrocodone/Apap 10/325 Tab PO 04/04/25 15:10 1 tab Q6HR PRN Administration PAIN SCALE 4-6 (Moderate Bicalutamide 50 mg 03/31/25 09:00 03/31/25 10:53 Bicalutamide 50 Mg Tablet PO 04/30/25 08:59 50 mg QDAY JUDY Administration Dextrose 25 ml 03/30/25 16:00 Dextrose 50%-Water Inj 50 Ml Syringe IV 04/29/25 15:59 Q15MIN PRN BG 50-70 responsive npo pt Dextrose 50 ml 03/30/25 16:00 Dextrose 50%-Water Inj 50 Ml Syringe IV 04/29/25 15:59 Q15MIN PRN BG <50 OR BG <70 & pt unresponsive Finasteride 5 mg 03/31/25 09:00 03/31/25 10:54 Finasteride 5 Mg Tablet PO 04/30/25 08:59 5 mg QDAY JUDY Administration Glucagon 1 mg 03/30/25 16:00 Glucagon Inj 1 Mg Vial IM Q15MIN PRN BG <70, and no IV access Insulin Human Lispro 0 unit 03/30/25 17:00 03/31/25 07:49 Insulin Lispro (Admelog) 1 Unit/0.01 Ml Unit SC 04/29/25 16:59 Not Given AC [facility] Protocol Lisinopril 5 mg 03/30/25 15:45 03/31/25 08:13 Lisinopril 2.5 Mg Tablet PO 04/29/25 15:44 Not Given QDAY [facility] Ondansetron HCl 4 mg 03/30/25 15:11 Ondansetron Inj 2 Mg/Ml Inj 2 Ml IV 04/29/25 15:10 Q6H PRN NAUSEA OR VOMITING Protocol Myra Parks is a 39-year-old male with no reported past medical history who presents after obtaining transrectal prostate biopsy on same day. Admitted for further management of acute urinary retention s/p transrectal prostatic biopsy, metastatic disease of unknown origin, and microcytic anemia requiring transfusion. #Acute urinary retention status post transrectal prostate biopsy #Gross hematuria Sent from [employer] after transrectal prostate biopsy after patient found to have acute urinary retention with associated gross hematuria, passing blood clots, as well as hematochezia. Patient denies pain abdomen or urogenital region. UA significant for dark red urine, 3+ blood, 5000 RBC. ? Urology consulted, recommended discontinuation of three-way Clifton catheter ? Will monitor urine output for more day and if urinary retention recurs will place Clifton catheter ? Finasteride 5 mg daily ? Tamsulosin 0.4 mg daily #Acute blood loss anemia, resolved #Microcytic anemia secondary to anemia of chronic disease Preprocedure hemoglobin 7.7 that dropped to 6.0 with associated gross hematuria and hematochezia after procedure. 2 units PRBC ordered in ED pending transfusion. Posttransfusion H&H showed hemoglobin of 8.7. Reticulocyte count elevated at 3.5%, iron low at 21, ferritin high at 4000 - suggestive of anemia of chronic diseaes. ? Treatment of underlying disorder #Metastatic disease of unknown origin #Elevated ALP Presenting symptom of back and leg pain and found to have metastatic disease from PET scan on 03/28/2025. As noted above, underwent transrectal prostate biopsy further evaluate. Denies any known family history of cancer. Seen by oncologist, Dr. Rodrigez, and started patient on mild antiandrogen (Casodex). Also states that if prostate cancer confirmed can start leuprolide. PSA 1149, CEA negative, CA 19?19 pending. ? Oncology consulted, recommendations appreciated ? Bicalutamide 50 mg p.o. daily #Hypoosmolar hyponatremia, resolved ? Will monitor with daily labs #Hyperbilirubinemia #Transaminitis ? Denies abdominal pain and will monitor at this time #Type 2 diabetes mellitus A1c 6.1% on 03/30/2025. ? SSI ? Hypoglycemic protocol in place #Hypertension ? Lisinopril 5 mg p.o. daily Hospital management: Disposition: Med telemetry, monitoring urine output after discontinuation of three-way Clifton Fluids: 1 L NS Diet: Regular Lines: PIV DVT prophylaxis: SCDs given gross hematuria GI prophylaxis: Not indicated Clifton: Three-way with continuous irrigation CODE STATUS: full code ----- Plan discussed with attending physician Dr. Lizzette Burr MD PGY-1 Internal Medicine Attending Provider Attestation/Addendum I reviewed labs, imaging, EKG, home medications and prior available records. Face to face evaluation was performed by me. I have personally examined the patient and discussed assessment and plan with the IM team. I reviewed the resident note and agree with the plan with exceptions as below. Acute anemia Hematuria Acute urinary retention Lymphadenopathy Stage IV malignancy of unknown primary essential hypertension Hyponatremia Thrombocytopenia Urology recommended three-way Clifton catheter and finasteride. Discussed with urology: Voiding trial in the evening Status post 2 PRBC transfusion. Monitor H&H posttransfusion: Stable Continue IV fluids. Monitor sodium level Monitor platelet level. Monitor for bleeding Consulted oncology: Likely prostate cancer. Started bicalutamide 50 mg p.o. daily. Outpatient follow-up
--- NOTE | 2025-03-31 11:22 | PC.SS ---
SS follow up note; HMG being monitored, pending urology consult. Patient will discharge home when medically cleared.
--- NOTE | 2025-03-31 23:26 | ESCONSULT_ITS ---
RE: ANNEL BACA : 1985 DATE OF CONSULTATION: 03/31/2025 CHIEF COMPLAINT: 1. BPH with urinary obstruction and LUTS. 2. Gross hematuria. 3. Metastatic prostate cancer with workup done at [facility] in [place]. HISTORY OF PRESENT ILLNESS: This is a 39-year-old male. He has no family history of prostate cancer. The patient had a significant elevated PSA. I do not have the exact numbers. The patient went to [facility]. He had a PET/CT done on 03/28/2025 because of back and leg pain. This revealed metastatic disease. There was mediastinal, abdominal and pelvic lymphadenopathy. The patient underwent transrectal biopsy of the prostate gland done in radiology department in [facility]. Subsequently, patient had gross hematuria, had a clot retention, had a placement of 3-way Clifton catheter. He went to the emergency room. In the emergency room, he has a CBC, which revealed hemoglobin of 6, hematocrit 17.5, and platelet count 51. He was given blood transfusion. He was started on 3-way continuous irrigation. Past medical history: No history of cancer in the family; even though, there is a family history of hypertension, diabetes mellitus, and valley fever. Review of the system: All systems revealed normal except as documented. NARRATIVE EXAMINATION: GENERAL: Condition is satisfactory, not in acute distress. The patient is Divehi speaking. HEENT: Normocephalic and atraumatic. Eyes: No anemia or jaundice. NECK: Supple. Trachea is central. Thyroid is not enlarged. EXTREMITIES: Revealed no edema, cyanosis or clubbing. VITAL SIGNS: Stable. They are in HPI, in EMR. CHEST: Symmetrical. HEART: Regular rate and rhythm. ABDOMEN: Obese. No masses. Liver spleen, and kidney not palpable. No CVA tenderness. GENITALIA: He has indwelling catheter. Urine is clear after CBI was stopped. ASSESSMENT: 1. Acute urinary retention, status post transrectal prostate biopsy. 2. Gross hematuria. 3. Acute blood loss anemia. 4. Metastatic disease, status post prostate biopsy. 5. Hyperbilirubinemia. RECOMMENDATION: DC Clifton catheter. Start on tamsulosin 0.4 mg p.o. daily, finasteride 5 mg p.o. daily, give him a trial of voiding and Dr. Rodrigez, who is the radiation oncologist in [facility] has started him on Casodex. He is going to be started on injection of Lupron in 2 weeks' time. I will see this patient. He has appointment with me next week and he will continue to follow up with Dr. Rodrigez. All above issues were discussed with patient in great detail. Questions answered to patient's satisfaction. The patient verbalized understanding. DT: 13:52:54 TT: 23:24:00 Ref: - TID: [id number]
[2025-04-01] VITALS: BP 128/85; PULSE 86; RESP 18; TEMP 37; O2SAT 94
[2025-04-01 04:00] VITALS: BP 135/72; PULSE 77; RESP 18; TEMP 36.8; O2SAT 93
[2025-04-01] MEDS: HYDROcodone/APAP 10/325 TAB PO (05:26)
[2025-04-01 06:33] LABS: Alanine Aminotransferase 40 U/L (10-49); Albumin, Serum 3.7 gm/dL (3.5-5.0); Albumin/Globulin Ratio 1.3 (1.2-2.2); Alkaline Phosphatase 115 U/L (46-116); Anion Gap 11 (7-16); Aspartate Amino Transferase 42 U/L (0-34); BUN/Creatinine Ratio 17 Ratio (12-20); Bilirubin,Total 1.1 mg/dL (0.3-1.2); Blood Urea Nitrogen 17 mg/dL (9-23); Calcium (Corrected) 9.2 mg/dL (8.5-10.1); Carbon Dioxide 28.4 mMol/L (20.0-31.0); Chloride 99 mMol/L (98-107); Estimated Creatinine Clearance 96.1 mL/min (>60); Globulin 2.8 gm/dL (2.3-3.5); Glucose 103 mg/dL (74-106); Magnesium 1.7 mg/dL (1.6-2.6); Osmolality,Calculated 277 (275-295); Phosphorous 4.3 mg/dL (2.4-5.1); Potassium 4.2 mMol/L (3.4-5.1); Sodium 138 mMol/L (136-145); Total Protein 6.5 gm/dL (5.7-8.2); eGFR > 60 See Note
[2025-04-01 07:27] VITALS: BP 162/98; PULSE 85; RESP 18; TEMP 36.3; O2SAT 97
[2025-04-01 08:00] VITALS: PULSE 88
[2025-04-01 09:57] VITALS: BP 134/89; PULSE 80
[2025-04-01] MEDS: Lisinopril 2.5 MG TABLET 5 MG PO (09:57)
[2025-04-01] MEDS: FINASTERIDE 5 MG TABLET PO (09:57)
[2025-04-01] MEDS: BICALUTAMIDE 50 MG TABLET PO (09:57)
[2025-04-01] MEDS: TAMSULOSIN HCL 0.4 MG CAPSULE PO (09:58)
--- NOTE | 2025-04-01 11:38 | PD.RESHP ---
Documentation for date of: 04/01/25 Exam Vital Signs Temp Pulse Resp BP Pulse Ox O2 Del Method O2 Flow Rate 97.3 F 80 18 134/89 H 97 Room Air 87 04/01/25 07:27 04/01/25 09:57 04/01/25 07:27 04/01/25 09:57 04/01/25 07:27 04/01/25 07:27 03/30/25 22:29 Results: Labs 04/01/25 04:45 04/01/25 04:45 Labs: Short CBC 04/01/25 Range/Units 04:45 WBC 7.9 (3.8-10.6) Thou/mm3 Hgb 9.0 L (13.5-16.0) g/dL Hct 26.1 L (41.0-53.0) % Plt Count 208 D (140-440) Thou/mm3 BMP 04/01/25 04:45 Sodium 138 Potassium 4.2 Chloride 99 Carbon Dioxide 28.4 BUN 17 Creatinine 1.0 Glucose 103 Calcium 9.0 Liver Function 04/01/25 Range/Units 04:45 Total Bilirubin 1.1 (0.3-1.2) mg/dL AST 42 H (0-34) U/L ALT 40 (10-49) U/L Alkaline Phosphatase 115 (46-116) U/L Albumin 3.7 (3.5-5.0) gm/dL Quality Measures Quality Measures VTE prophylaxis (SCDs) Medications Home Medications and Allergies Home Medications ?Medication ?Instructions ?Recorded ?Confirmed ?Type hydrocodone 10 mg-acetaminophen 1 tab PO Q6H PRN pain 03/30/25 03/31/25 History 325 mg tablet Allergies Allergy/AdvReac Type Severity Reaction Status Date / Time cephalexin Allergy Rash Verified 03/30/25 09:48 Visit Medications Acetaminophen (Acetaminophen 325 Mg Tablet) 650 mg PO Q6H PRN PRN Reason: PAIN 1-3 OR FEVER > 100.4 Stop: 04/29/25 15:10 Hydrocodone Bitart/Acetaminophen (Hydrocodone/Apap 10/325 Tab) 1 tab PO Q6HR PRN PRN Reason: PAIN SCALE 4-6 (Moderate Stop: 04/04/25 15:10 Last Admin: 04/01/25 05:26 Dose: 1 tab Bicalutamide (Bicalutamide 50 Mg Tablet) 50 mg PO QDAY JUDY Stop: 04/30/25 08:59 Last Admin: 04/01/25 09:57 Dose: 50 mg Dextrose (Dextrose 50%-Water Inj 50 Ml Syringe) 25 ml IV Q15MIN PRN PRN Reason: BG 50-70 responsive npo pt Stop: 04/29/25 15:59 Dextrose (Dextrose 50%-Water Inj 50 Ml Syringe) 50 ml IV Q15MIN PRN PRN Reason: BG <50 OR BG <70 & pt unresponsive Stop: 04/29/25 15:59 Finasteride (Finasteride 5 Mg Tablet) 5 mg PO QDAY [facility] Stop: 04/30/25 08:59 Last Admin: 04/01/25 09:57 Dose: 5 mg Glucagon (Glucagon Inj 1 Mg Vial) 1 mg IM Q15MIN PRN PRN Reason: BG <70, and no IV access Insulin Human Lispro (Insulin Lispro (Admelog) 1 Unit/0.01 Ml Unit) 0 unit SC [facility]; Protocol Stop: 04/29/25 16:59 Last Admin: 04/01/25 07:32 Dose: Not Given Lisinopril (Lisinopril 2.5 Mg Tablet) 5 mg PO QDAY [facility] Stop: 04/29/25 15:44 Last Admin: 04/01/25 09:57 Dose: 5 mg Ondansetron HCl (Ondansetron Inj 2 Mg/Ml Inj 2 Ml) 4 mg IV Q6H PRN; Protocol PRN Reason: NAUSEA OR VOMITING Stop: 04/29/25 15:10 Tamsulosin HCl (Tamsulosin Hcl 0.4 Mg Capsule) 0.4 mg PO QDAY [facility] Stop: 05/01/25 08:59 Last Admin: 04/01/25 09:58 Dose: 0.4 mg Discontinued Medications Finasteride (Finasteride 5 Mg Tablet) 5 mg PO X1 ONE Stop: 03/30/25 14:30 Last Admin: 03/30/25 19:09 Dose: Not Given Lactated Ringer's (Lactated Ringers) 1,000 mls @ 999 mls/hr IV .Q1H1M ONE Stop: 03/30/25 12:29 Last Infusion: 03/30/25 13:00 Dose: Infused Tranexamic Acid (Tranexamic Acid Ivpb) 1,000 mg in 100 mls @ 200 mls/hr IV X1 ONE Stop: 03/30/25 14:59 Last Infusion: 03/30/25 16:06 Dose: Infused Sodium Chloride (Ns) 1,000 mls @ 100 mls/hr IV .Q10H ONE Stop: 03/31/25 01:11 Last Admin: 03/30/25 15:37 Dose: 100 mls/hr Lidocaine HCl (Lidocaine Jelly 2% (Urojet) 10 Ml Tube) 0 ml TOP X1 ONE Stop: 03/30/25 16:14 Last Admin: 03/30/25 16:31 Dose: 10 ml
[2025-04-01 12:00] VITALS: BP 145/92; PULSE 85; PULSE 88; RESP 18; TEMP 36.3; O2SAT 97
--- NOTE | 2025-04-01 12:27 | ESDS_ITS ---
Planned Discharge Date 04/01/25 DS: Providers Provider Date of admission: 03/30/25 15:25 Primary care physician: Preeti Pennington PA-C Admitting Provider: Akil Crocker MD Attending Provider on Admission: Akil Crocker MD Consults: 03/30/25 14:22 Consult to Urology Stat Comment: Hematuria post trans rectal biopsy Consulting Provider: Valeria Bird 03/30/25 15:17 Consult to Oncology Stat Comment: Metastatic cancer of unknown origin, no FHx Consulting Provider: Kalyan Rodrigez Attending Provider on DC: Rony Burr MD Discharging Provider: Rony Burr MD DS: Diagnosis Problem List Completed Was Problem List Reviewed/Reconciled?: Yes Hospital Course Hospital Course Hospital course: Justin Parks is a 39-year-old male with no reported past medical history who presents after obtaining transrectal prostate biopsy on same day. Underwent biopsy that was uneventful here at [facility] at approximately 8:30 AM and sent to ED from [facility] after noting difficulty urinating, passing large blood clot with intermittent bloody urine, and bloody stool. Upon evaluation, patient denies having any abdominal or genitourinary pain, lightheadedness, or palpitations. He also states that though difficult, he is able to urinate intermittently and has noticed less blood over time. Reason for biopsy was for evaluation of extensive metastatic mediastinal, abdominal, and pelvic lymphadenopathy as well as widespread osseous metastatic disease seen on PET scan on 03/28/2025. Patient states that his first presenting symptom was back and leg pain for which he obtained CT of the lumbar spine at [facility] that showed findings concerning for malignancy. Endorses 12 pound weight loss within 1 month, night sweats but no fever or chills. In ED hemoglobin 6.0 and transfused 2 units pRBC with improvement to 8.7. UA showed dark red urine, 3+ blood, 5000 RBC, 3+ protein, LE positive, no bacteria. Urology was consulted and advised placement of three-way Clifton, start continuous bladder irrigation, and start on finasteride. Dr. Rodrigez, oncology, was also consulted given metastatic disease. Dr. Bird evaluated patient following day and recommended to remove three-way Clifton, continue finasteride, and start tamsulosin. Dr. Rodrigez also evaluated patient and started on Casodex with plan to start leuprolide in the future. Patient to then follow-up with both specialists outpatient. Hemoglobin remained stable and patient was able to urinate without pain and without gross gross hematuria after DC'ing three-way. He has already been scheduled to see both specialists the following week and will be discharged with medications that were started inpatient. Otherwise, patient had no othe complaints, vitals and labs stable, questions were answered, and deemed stable for discharge with close follow-up. Diagnoses during admission: #Acute urinary retention status post transrectal prostate biopsy #Gross hematuria #Acute blood loss anemia, resolved #Microcytic anemia secondary to anemia of chronic disease #Metastatic disease of unknown origin #Elevated ALP #Hypoosmolar hyponatremia, resolved #Hyperbilirubinemia #Transaminitis #Type 2 diabetes mellitus #Hypertension Discharge instructions: ? Continue taking bicalutamide 50 mg daily ? Continue taking finasteride 5 mg daily ? Continue taking tamsulosin 0.4 mg daily ? Follow-up with oncologist, Dr. Rodrigez, per your scheduled appointment ? Follow-up with urologist, Dr. Bird, per your scheduled appointment ? Continue taking all other home medications as prescribed ? Follow-up with PCP within 1-2 weeks of discharge ? If you do not have a PCP, you can follow-up at the [facility] (you can call [phone] to make an appointment) ? If you wish to follow-up with Dr. Burr, schedule appointment on Thursday afternoons ? Return to ED if symptoms worsen or recur ----- Plan discussed with attending physician Dr. Lizzette Burr MD PGY-1 Internal Medicine Time Spent with Patient Time attestation: Total time spent providing and/or coordinating discharge services: Time spent: Less than 30 minutes Exam Vital Signs Temp Pulse Resp BP Pulse Ox O2 Del Method O2 Flow Rate 97.3 F 88 18 145/92 H 97 Room Air 87 04/01/25 12:04/01/25 12:04/01/25 12:04/01/25 12:04/01/25 12:04/01/25 12:03/30/25 22:29 Narrative Exam General: AOx3, no acute distress, able to speak full sentences HEENT: NC/AT, mucous membranes moist, bilateral sclera anicteric Cardiovascular: regular rate and rhythm, S1/S2 present, no murmurs appreciated Pulmonary: clear to auscultation bilaterally, no rales/rhonchi/wheezes Abdominal: soft, non-tender, non-distended, no rebound/guarding, normal bowel sounds present Musculoskeletal: normal ROM, no peripheral edema Skin: warm and dry, intact, no rashes Neuro: CN II-XII intact, no focal deficits Discharge Plan Plan Patient Disposition: HOME (Self Care) Care Plan Goals: ? Continue taking bicalutamide 50 mg daily ? Continue taking finasteride 5 mg daily ? Continue taking tamsulosin 0.4 mg daily ? Follow-up with oncologist, Dr. Rodrigez, per your scheduled appointment ? Follow-up with urologist, Dr. Bird, per your scheduled appointment ? Continue taking all other home medications as prescribed ? Follow-up with PCP within 1-2 weeks of discharge ? If you do not have a PCP, you can follow-up at the [facility] (you can call [phone] to make an appointment) ? If you wish to follow-up with Dr. Burr, schedule appointment on Thursday afternoons ? Return to ED if symptoms worsen or recur Contin?e tomando bicalutamida 50 mg al d?a ? Contin?e tomando finasterida 5 mg al d?a ? Contin?e tomando tamsulosina 0.4 mg al d?a ? Contin?e con rasheed stephane de seguimiento con el onc?logo Dr. Rodrigez ? Contin?e con rasheed stephane de seguimiento con el ur?logo Dr. Bird ? Contin?e tomando todos los dem?s medicamentos que kyara en casa seg?n lo prescrito ? Contin?e con rasheed m?dico de cabecera dentro de 1 a 2 semanas despu?s del emanuel ? Si no tiene m?dico de cabecera, puede realizar rasheed seguimiento en el [facility]?jonathan de Rachel (puede llamar al [phone] para programar dinorah stephane) ? Si desea realizar rasheed seguimiento con el Dr. Burr, programe dinorah stephane los mi?rcoles por la tarde ? Regrese a urgencias si los s?ntomas empeoran o reaparecen Prescriptions/Referrals Prescriptions/Med Rec: New bicalutamide 50 mg tablet 50 mg PO QDAY 30 Days Qty: 30 0RF finasteride 5 mg tablet 5 mg PO QDAY 30 Days Qty: 30 0RF tamsulosin 0.4 mg capsule 0.4 mg PO QDAY 30 Days Qty: 30 0RF No Action hydrocodone-acetaminophen 10-325 mg tablet 1 tab PO Q6H PRN (Reason: pain) Rx Instructions: Patient states that it is ordered for him to take PRN q4hrs, q6rs and q8hrs. Referrals: Preeti Pennington PA-C [Primary Care Provider] - Patient/Caregiver Discharge Instructions Education Materials: Transurethral Resection of the ..., Benign Prostatic H yperplasia, ED Urinary Retention, Male Print Language: Ghanaian Stand Alone Forms: Ashley Award Info., Patient Portal Info Letter Discharge Order Discharge Orders: Discharge (Routine); Ordered 04/01/25 Ordered By: Rony Jauregui Nvjeremy Quality Discharge Quality Measures VTE prophylaxis (SCDs) Attestestation MD Attestation I reviewed labs, imaging, EKG, home medications and prior available records. Face to face evaluation was performed by me. I have personally examined the patient and discussed assessment and plan with the IM team. I reviewed the resident note and agree with the plan with exceptions as below. Acute anemia Hematuria Acute urinary retention Lymphadenopathy Stage IV malignancy of unknown primary essential hypertension Hyponatremia Thrombocytopenia Clifton catheter was removed. Patient passed his voiding trial Continue tamsulosin and finasteride Status post 2 PRBC transfusion. Monitor H&H posttransfusion: Stable Continue IV fluids. Monitor sodium level: Improved Monitor platelet level. Monitor for bleeding Consulted oncology: Likely prostate cancer. Started bicalutamide 50 mg p.o. daily. Outpatient follow-up Time spent is 40 minutes. More than 50% of the time was spent on patient education and coordination of care.
[2025-04-04 07:04] LABS: CA 19-9 Antigen* 16 U/mL (<34)
== END 2025-04-01 12:22 | disposition home or self-care (01) | DRG 500 ==
LOC: SERX 14:29 → SERHOLD 15:37 → S3SX 19:36
PROVIDERS: Nurse Practitioner Family; Admitting Provider Student in an Organized Health Care Education/Training Program; Emergency Provider Emergency Medicine; PCP Physician Assistant Medical; Visit Provider Student in an Organized Health Care Education/Training Program
DX: C61 Malignant neoplasm of prostate (principal); R31.0 Gross hematuria; E11.9 Type 2 diabetes mellitus without complications; I10 Essential (primary) hypertension; D62 Acute posthemorrhagic anemia; R33.9 Retention of urine, unspecified; N13.8 Other obstructive and reflux uropathy; E87.1 Hypo-osmolality and hyponatremia; R17 Unspecified jaundice; R74.01 Elevation of levels of liver transaminase levels; R59.0 Localized enlarged lymph nodes; D50.9 Iron deficiency anemia, unspecified; D63.8 Anemia in other chronic diseases classified elsewhere; C79.51 Secondary malignant neoplasm of bone; Z79.899 Other long term (current) drug therapy
CPT/HCPCS: 36415; 36430; 80053; 80061; 81001; 82378; 82728; 83036; 83540; 83550; 83735; 84100; 84153; 84439; 84443; 85014; 85018; 85025; 85046; 86301; 86850; 86900; 86901; 86923; 87086; 93225; 96360; 96365; 99285; J3490; J7030; J7120; P9016; A9270

== ENCOUNTER 2025-04-04 10:46 | Outpatient (RCR) | payer MEDICAID, SELFPAY ==
--- NOTE | 2025-04-04 12:14 | CTCFLWUP_ITS ---
[facility] [address] [place], [place] [address] FOLLOW-UP NOTE Date: 04/04/2025 MR#: [id number] Name: ANNEL BACA : 1985 Dx: C61 Malignant neoplasm of prostate Identification. Patient was admitted briefly [facility] Last week and had biopsy of his prostate performed, Round O's grade 9 group 5 prostate CA left lobe. PSA was 1149. PET scan 03/28/1995 extensive metastatic mediastinal abdominal pelvic lymphadenopathy with widespread osseous mets disease. Prior chest abdomen pelvis CT 03/21/1995 revealed diffuse osteolytic lesions along with significant mediastinal lymphadenopathy. Out of the hospital patient feels significantly better, pain control with Terral 10 and Casodex has been initiated. A#! Stage IV prostate CA with widespread mets noted on CT #2. MRI of cervical thoracic lumbar pending. To rule out any spinal cord involvement. #3. Pain reasonably well-controlled on Terral 10 every 6 as needed. #4. Casodex has been initiated Lupron in the next 1 to 2 weeks to avoid flare problem. #5. Dr. Floyd will be consulted to see patient Cc: Deisy Pennington PA-C [facility] Electronically signed by: Kalyan Rodrigez M.D. 04/04/2025 12:12 PM
== END 2025-04-29 23:59 | disposition home or self-care (01) ==
LOC: SCTC 10:46
PROVIDERS: PCP Physician Assistant Medical; Referring Provider Physician Assistant Medical; Visit Provider Radiology Therapeutic Radiology
DX: C61 Malignant neoplasm of prostate (principal); C78.1 Secondary malignant neoplasm of mediastinum; C79.51 Secondary malignant neoplasm of bone
CPT/HCPCS: 99213; 99424; 99425; G0463

== ENCOUNTER → 2025-04-06 | Outpatient (BNVA) | payer MEDICAID, SELFPAY | END | disposition home or self-care (01) | PROVIDERS: PCP Physician Assistant Medical; Referring Provider Physician Assistant Medical; Visit Provider Urology | DX: N40.1 Benign prostatic hyperplasia with lower urinary tract symptoms (principal); N13.8 Other obstructive and reflux uropathy; C61 Malignant neoplasm of prostate; C77.2 Secondary and unspecified malignant neoplasm of intra-abdominal lymph nodes; R97.20 Elevated prostate specific antigen [PSA] | CPT/HCPCS: 99203; G0463 ==

== ENCOUNTER → 2025-04-10 | Outpatient (CLI) | payer MEDICAID, SELFPAY ==
--- NOTE | 2025-04-10 15:45 | XR_ITS ---
Examination: MRI cervical spine with intravenous contrast TECHNIQUE: Multiple sagittal and axial MR images postintravenous administration 14 cc gadolinium Date and time: April 10, 2025 1727 hours Diagnosis malignant neoplasm prostate, widespread osseous metastatic disease on PET/CT scan March 28, 2025 FINDINGS: Abnormal enhancement involving posterior inferior margin C3, most of the C4 vertebral body, posterior upper margin C5, inferior margin C6, superior margin C7. No enhancing epidural tumor impinging upon the cervical cord No localized enlargement cervical cord IMPRESSION: Osseous metastatic disease as above No tumor compression of the cervical cord
--- NOTE | 2025-04-10 16:15 | XR_ITS ---
Examination: MRI lumbar spine with intravenous contrast TECHNIQUE: Multiple axial sagittal MR images post intravenous administration 14 cc gadolinium INDICATIONS: Diagnosis malignant neoplasm prostate, PET CT scan March 28, 2024 widespread osseous metastatic disease FINDINGS: All lumbar vertebral bodies show multiple foci of abnormal enhancement Abnormal enhancement also involves the first and second sacral segments and visualized iliac bones Epidural tumor enhancement posterior to L4, L5, S1,, measuring up to 6 mm posterior to L5 No visualized impingement upon the cauda equina or conus medullaris IMPRESSION: Widespread osseous metastatic disease No pathologic compression fracture Enhancing epidural tumor posterior to L4, L5, S1 but no impingement upon the cauda equina
--- NOTE | 2025-04-10 17:00 | XR_ITS ---
Examination: MRI thoracic spine with intravenous contrast TECHNIQUE: Multiple axial sagittal MRI images thoracic spine post intravenous administration 14 cc gadolinium Date and time: April 10, 2025 1746 hours INDICATIONS: Diagnosis malignant neoplasm prostate, widespread osseous metastatic disease on PET/CT scan March 28, 2025 FINDINGS: All visualized thoracic vertebral bodies demonstrate abnormal enhancement No pathologic thoracic vertebral body compression fracture No abnormal enhancing epidural tumor posterior to the thoracic vertebral bodies No enhancing tumor compression of the thoracic cord No enlargement of the thoracic cord Bilateral abnormal rib enhancement is also depicted IMPRESSION: Widespread osseous metastatic disease No abnormal enhancing epidural tumor impinging upon the thoracic cord
== END | disposition home or self-care (01) ==
PROVIDERS: PCP Physician Assistant Medical; Referring Provider Radiology Therapeutic Radiology; Visit Provider Radiology Therapeutic Radiology
DX: C79.9 Secondary malignant neoplasm of unspecified site (principal); C61 Malignant neoplasm of prostate
CPT/HCPCS: 72142; 72147; 72149; A9579

== ENCOUNTER 2025-05-15 09:00 | Outpatient (RCR) | payer MEDICAID, SELFPAY ==
--- NOTE | 2025-05-09 09:38 | CTCFLWUP_ITS ---
[facility] Counts Include 234 Beds At [facility] [address] [place], [place] [address] FOLLOW-UP NOTE Date: 05/09/2025 MR#: [id number] Name: ANNEL BACA : 1985 Dx: C61 Malignant neoplasm of prostate Identification. Patient with suspected widespread prostate CA with extensive mets with PSA 961 on blood draw of 03/09/2025. When okay repeated 03/30/2025 this was 1149. Patient also had chest abdomen pelvis CT 03/21/2025 showing significant mediastinal lymphadenopathy 14 mm nodule left midlung extensive abdominal pelvic lymphadenopathy and diffuse osteolytic lesions in cervical thoracic lumbar spine. Also 25 mm enhancing right prostate nodule. PET scan 03/28/2025 showing extensive metastatic mediastinal abdominal pelvic lymphadenopathy with widespread osseous mets disease. Patient finally had prostate biopsy performed 03/30/2025 revealing Donta's grade 9 (4+5) Grade group 5 left lobe of the prostate adenocarcinoma. When initially seen without biopsy diagnosis but with strong clinical and radiographic evidence of prostate CA I took the liberty of placing patient on Casodex 50 mg daily which he has taken for about a month, along with hydrocodone and gabapentin for pain symptoms. He has done surprisingly well not needing any pain meds. MRI cervical thoracic lumbar areas 04/10/2025 shows widespread bone mets but no impending fracture or neurological involvement. A#1. Prostate CA group 5 grade 9 with widespread extensive mets noted radiographically. #2. Currently on Casodex 50 mg/day awaiting Lupron injections. #3. scheduled see Dr. Floyd next week who will likely initiate second- generation antiandrogen along with Lupron, as well as Xgeva. #4. Gave patient a form to have dentist fill out form bisphosphonate therapy use, along with repeat labs. #5 Surprisingly comfortable, despite widespread bone mets not needing any pain meds. MRI of the CTL spine does not reveal any impending fracture or neurological involvement. #6. I will see him back in 3 months time. Cc: Deisy Pennington PA-C Electronically signed by: Kalyan Rodrigez M.D. 05/09/2025 9:35 AM
--- NOTE | 2025-05-15 22:16 | CTCCONSULT_ITS ---
Patient: ANNEL PARKS : 1985 MR#: [id number] Page 5 of 6 CONSULTATION NOTE DATE OF CONSULTATION: 05/15/2025 NAME: ANNEL PARKS ACCOUNT: [id number] : 1985 AGE: 39 REFERRING PHYSICIAN: Preeti Pennington MD PRIMARY PHYSICIAN: REASON FOR VISIT: Metastatic adenocarcinoma ONCOLOGY HISTORY: DIAGNOSIS: Malignant neoplasm of prostate [ICD10] C61 DATE OF DIAGNOSIS: 2024 STAGE/TNM: Prostatic adenocarcinoma Donta score 9] 4+5 Grade group 6 and 6 out of the 8 cores involved 35% of the needle core tissue TREATMENT HISTORY: Care?Plan Start?Date Cycle Day Intent Docetaxel?75mg/m2 05/15/2025 1 21 Palliative HISTORY OF PRESENT ILLNESS: Subjective: Chief Complaint Prostate cancer follow-up, leg pain starting in January History of Present Illness Annel Parks, a 39-year-old male with recently diagnosed high-risk prostate cancer, presents for oncology evaluation and treatment planning. The patient reports feeling good overall but is here due to his cancer diagnosis. Mr. Parks's symptoms began in January 2025 when he started experiencing leg pain. X-rays were performed, leading to the discovery of cancer. On March 30, 2025, he underwent a prostate biopsy at a local facility, which revealed prostatic adenocarcinoma with a Donta score of 9 in the left lobe of the prostate. The patient denies any prior urinary symptoms, stating he would urinate normally when waking up at 4 a.m. for work. He has been taking oral medications prescribed by Dr. Rodrigez since March but has not received any injections. The patient's cancer appears to be extensive, involving multiple bones and lymph nodes, including some in the chest cavity. Despite the advanced stage of his disease, Mr. Parks reports feeling well and has even gained weight recently. He expresses a desire to visit his mother, who recently learned about his cancer diagnosis, for a week. Regarding his occupation, Mr. Parks works for a large [employer] company. 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 His coworker, who was also exposed, became ill and subsequently after 15 days in a coma. The patient denies any family history of prostate cancer or breast cancer. He has not experienced issues with urination, such as weak stream or dribbling, despite having an enlarged prostate. Medications and Supplements - Casodex - Taking since March - Vitamin D3 3000 IU by mouth daily - Lupron (leuprolide for depot) injection - Was prescribed but not received yet Review of Systems General: Positive for leg pain. Genitourinary: Positive for dribbling of urine and weak stream. Negative for difficulty urinating. Objective: Laboratory, Imaging, and Diagnostic Test Results - Date: March 30, 2025 - Prostate biopsy: Left lobe of the prostate showed prostatic adenocarcinoma with a Donta score of 9 - PSA: 1049 - Ferritin: 5000 FAMILY HISTORY: Patient?denies?family?cancer?history. SOCIAL HISTORY: Occupational?History:?Unemployed Education?Level:?Completed 8th grade Marital?Status:? Tobacco?Use:?Denies ETOH?Use:?Denies Drug?Note:?Denies Social History Note:?Lives with ; 3 sons; [id number] MEDICATIONS: 1. Casodex - 50 mg 1 tab Daily 2. finasteride - 5 mg 1 tab Daily 3. Flomax - 0.4 mg 1 Capsule Daily 4. HYDROcodone-acetaminophen - 10-325 mg 1 - 2 tab q6 5. prednisone - 5 mg 1 tab twice Daily 6. Zytiga - 250 mg 4 tab Daily Medications Last Reconciled by Gela Treadwell RN on 05/15/2025 ALLERGIES: cephalexin REVIEW OF SYSTEMS: A complete 14-point review of systems was performed and is negative except as noted in interval history. PHYSICAL EXAMINATION: VITAL SIGNS: Temperature?96.1, B/P?128/76, Height?66?inches, Oxygen?Saturation?99% Weight?169?lbs (Change?since?05/09/25:?3?lbs) PAIN: 0 - No pain ECOG Performance Status: None GENERAL APPEARANCE: Appears well, in no apparent distress, appropriately interactive. HEENT: Normocephalic, no temporal wasting, normal conjunctiva, no scleral icterus, normal hearing, lips without lesions, neck normal range of motion. CARDIOVASCULAR: Not assessed. PULMONARY: Normal respiratory effort, no respiratory distress or use of accessory muscles, speaking in full sentences, no tachypnea. EXTREMITIES: No pedal edema or cyanosis. SKIN: Normal skin appearance. NEUROLOGIC: Alert and oriented x4. PSHYCHIATRIC: Appropriate affect, mood normal, behavior normal, intact thought and speech. LABORATORY DATA: I have personally reviewed and interpreted each of the patient?s relevant lab tests, abnormal findings are below: Date 03/31/25 04/01/25 ??WHITE?BLOOD?COUNT?(Thou/mm3) ? Cancelled ??RED?BLOOD?COUNT?(Miln/mm3) ? Cancelled?L ??HEMOGLOBIN?(gm/dl) ? Cancelled?L ??HEMATOCRIT?(%) ? Cancelled?L ??PLATELET?COUNT?(Thou/mm3) ? Cancelled ??NEUTROPHILS?%,?AUTO?(%) ? Cancelled ??LYMPH?%,?AUTO?(%) ? Cancelled ??NEUTROPHILS,?AUTO?(Thou/mm3) ? Cancelled ??GLUCOSE,RANDOM?(mg/dL) 109?H 103 ??BLOOD?UREA?NITROGEN?(mg/dL) 19 17 ??CREATININE?(mg/dL) 1.00 1.00 ??SODIUM?(mmol/L) 134?L 138 ??POTASSIUM?(mmol/L) 4.2 4.2 ??CHLORIDE?(mmol/L) 97?L 99 ??CrCl?(CandG)?(ml/min) 106.03 106.03 ??AST/SGOT?(Unit/L) 47?H 42?H ??ALT/SGPT?(Unit/L) 39 40 ??ALKALINE?PHOSPHATASE?(Unit/L) 119?H 115 ??BILIRUBIN,?TOTAL?(mg/dL) 1.4?H 1.1 ??PROTEIN?TOTAL?(gm/dl) 6.3 6.5 ??ALBUMIN,?SERUM?(gm/dl) 3.6 3.7 ??GLOBULIN?(gm/dl) 2.7 2.8 ??ALBUMIN/GLOBULIN?RATIO 1.3 1.3 ??CALCIUM,?SERUM?(mg/dL) 8.9 9.0 ??CALCIUM?SERUM?(CORRECTED)?(mg/dL) 9.2 9.2 ??MAGNESIUM?(mg/dL) ? 1.7 ASSESSMENT/PLAN: Assessment and Plan: Annel Parks, a 39-year-old male with newly diagnosed high-risk prostate cancer, presenting for oncology evaluation and treatment planning. High-risk prostate adenocarcinoma, stage 4B Assessment: Patient was diagnosed with prostate cancer following a biopsy on March 30, 2025, which revealed prostatic adenocarcinoma with a Donta score of 9 in the left lobe. Imaging studies indicate extensive disease with lymph node involvement in the chest cavity and bone metastases, consistent with at least stage 4B disease. PSA is markedly elevated at 1049. The patient is unusually young for this diagnosis at 39 years old, raising concern for genetic predisposition. He initially presented with leg pain in January, but denies prior urinary symptoms. The high-risk nature of the cancer and the patient's young age warrant aggressive treatment and consideration for clinical trials or novel therapies at a higher-level center. Plan: - Initiate hormone therapy: - Lupron (leuprolide for depot) injection every 3 months - Zytiga (abiraterone) 4 tablets daily - Prednisone 5 mg PO twice daily - Start chemotherapy: Docetaxel every 3 weeks for at least 6 cycles - Discontinue Casodex (bicalutamide) once Zytiga treatment begins - Order PSMA PET scan to confirm extent of metastatic disease - Perform genetic testing: - Germline and somatic mutation testing - BRCA mutation testing - Initiate Vitamin D3 3000 IU daily - Place port catheter for infusion treatments - Defer bone-strengthening medication (e.g., Prolia) for 6 months due to dental issues - Refer to higher-level center ([facility] or [place]) for evaluation of advanced treatment options - Follow-up in 4-6 weeks to reassess PSA and treatment response - Educate patient on dietary recommendations: limit sugar and carbohydrate intake - Mixologist patient on importance of adherence to treatment plan and follow-up appointments Ferritinemia Assessment: Patient's ferritin level is significantly elevated at 5000, suggesting possible anemia of chronic disease associated with advanced prostate cancer. Plan: - Monitor complete blood count during treatment - Reassess ferritin levels with follow-up labs Will check for JAK2 mutation Liver ultrasound Dental issues Assessment: Patient reports a loose tooth requiring extraction, which impacts the ability to start bone-strengthening medication for metastatic bone disease. Plan: - Refer to dentist for extraction of loose tooth and comprehensive dental evaluation - Defer bone-strengthening medication (e.g., Zometa, Prolia) for 6 months to allow for dental healing - Reassess eligibility for bone-strengthening medication in 6 monthsOTHER MEDICAL HISTORY/CONDITIONS: Prostate cancer Hx [place] [facility] - 12 yrs jaycee - treated Left?ankle?surgery?-?01/23 ORDERS: Order # Description [id number] Testosterone; Total [id number] [facility] Hereditary Cancer Test [id number] PSA [id number] Initial PET/CT of Skull to Mid-Thigh [id number] MD Follow Up 4 Week RETURN TO CLINIC: 4 weeks BILLING AND COMPLIANCE: I reviewed external records from providers outside my specialty as summarized above. I spent a total of 50 minutes on this patient?s care on the day of their visit excluding time spent related to any billed procedures. This time includes time spent with the patient as well as time spent documenting in the medical record, reviewing patients records and tests, obtaining history, placing orders, communicating with other healthcare professionals, counseling the patient, family or caregiver, and/or care coordination for the diagnoses above. Electronically Signed by: {Object.Sanct_ID*PnP.NameFL@M}, {Object.Sanct_ID*PnP.Suffix@U} D: {Object.Sanct_Date} T: {Object.Sanct_Time} CC: PCP: Referring: Preeti Pennington This document was completed utilizing speech recognition software. Grammatical errors, random word insertions, pronoun errors, and incomplete sentences are an occasional consequence of this system due to software limitations, ambient noise, and hardware issues. Any formal questions or concerns about the content, text or information contained within the body of this dictation should be directly addressed to the provider for clarification.
== END 2025-05-29 23:59 | disposition home or self-care (01) ==
LOC: SCTC 09:00
PROVIDERS: PCP Physician Assistant Medical; Referring Provider Physician Assistant Medical; Visit Provider Internal Medicine Hematology & Oncology
DX: C61 Malignant neoplasm of prostate (principal); C79.51 Secondary malignant neoplasm of bone; R79.0 Abnormal level of blood mineral; K08.89 Other specified disorders of teeth and supporting structures
CPT/HCPCS: 99211; 99213; G0463

== ENCOUNTER 2025-06-06 14:17 | Outpatient (RCR) | payer MEDICAID, SELFPAY ==
[2025-05-31 08:48] LABS: Misc Send Out* See Sep Rpt
[2025-05-31 08:54] LABS: Basophils # (Auto) 0.0 Thou/mm3 (0.0-0.2); Basophils % (Auto) 1 % (0-2.5); Eosinophils # (Auto) 0.0 Thou/mm3 (0.0-0.5); Eosinophils % (Auto) 1 % (0-10); Hematocrit 29.9 % (41.0-53.0); Hemoglobin 10.1 g/dL (13.5-16.0); Immature Granulocytes Auto 0.08 Thou/mm3 (0.00-0.00); Lymphocytes # (Auto) 1.9 Thou/mm3 (1.0-4.8); Lymphocytes % (Auto) 42 % (10-50); Mean Corpuscular HGB Conc 33.8 g/dl (31.0-37.0); Mean Corpuscular Hemoglobin 29.2 pg (25.0-35.0); Mean Corpuscular Volume 86 fL (80-100); Monocytes # (Auto) 0.2 Thou/mm3 (0.0-0.8); Monocytes % (Auto) 4 % (0-12); Neutrophils # (Auto) 2.3 Thou/mm3 (1.8-7.7); Neutrophils % (Auto) 50 % (37-80); Nucleated Red Blood Cell # 0.00 Thou/mm3 (0.00-0.00); Nucleated Red Blood Cell % 0 /100 WBC (0); Platelet Count 184 Thou/mm3 (140-440); RDW Standard Deviation 56.2 fL (35.1-43.9); Red Blood Count 3.46 Miln/mm3 (4.50-5.90); White Blood Count 4.6 Thou/mm3 (3.8-10.6)
[2025-05-31 09:23] LABS: Alanine Aminotransferase 12 U/L (10-49); Albumin, Serum 4.5 gm/dL (3.5-5.0); Albumin/Globulin Ratio 1.8 (1.2-2.2); Alkaline Phosphatase 163 U/L (46-116); Anion Gap 9 (7-16); Aspartate Amino Transferase 20 U/L (0-34); BUN/Creatinine Ratio 24 Ratio (12-20); Bilirubin,Total 0.8 mg/dL (0.3-1.2); Blood Urea Nitrogen 19 mg/dL (9-23); Calcium 9.3 mg/dL (8.3-10.6); Calcium (Corrected) 9.3 mg/dL (8.5-10.1); Carbon Dioxide 23.7 mMol/L (20.0-31.0); Chloride 108 mMol/L (98-107); Creatinine (Component) 0.8 mg/dL (0.6-1.3); Globulin 2.5 gm/dL (2.3-3.5); Glucose 107 mg/dL (74-106); Osmolality,Calculated 283 (275-295); Potassium 3.8 mMol/L (3.4-5.1); Sodium 141 mMol/L (136-145); Total Protein 7.0 gm/dL (5.7-8.2); eGFR > 60 See Note
[2025-05-31 09:43] LABS: Prostate Specific Antigen 212.81 ng/mL (0-4.00)
== END 2025-06-29 23:59 | disposition home or self-care (01) ==
LOC: SCTC 14:17
PROVIDERS: Internal Medicine Hematology & Oncology; PCP Physician Assistant Medical; Referring Provider Physician Assistant Medical; Visit Provider Radiology Therapeutic Radiology
DX: Z51.11 Encounter for antineoplastic chemotherapy (principal); C61 Malignant neoplasm of prostate; C79.51 Secondary malignant neoplasm of bone; R79.89 Other specified abnormal findings of blood chemistry; K08.89 Other specified disorders of teeth and supporting structures
CPT/HCPCS: 36415; 80053; 84153; 85025; 96402; J9217

== ENCOUNTER 2025-07-19 08:42 | Outpatient (CLI) | payer MEDICAID, SELFPAY ==
[2025-07-18 13:19] LABS: Basophils # (Auto) 0.0 Thou/mm3 (0.0-0.2); Basophils % (Auto) 0 % (0-2.5); Eosinophils # (Auto) 0.1 Thou/mm3 (0.0-0.5); Eosinophils % (Auto) 1 % (0-10); Hematocrit 36.4 % (41.0-53.0); Hemoglobin 11.7 g/dL (13.5-16.0); Immature Granulocytes Auto 0.01 Thou/mm3 (0.00-0.00); Lymphocytes # (Auto) 2.3 Thou/mm3 (1.0-4.8); Lymphocytes % (Auto) 49 % (10-50); Mean Corpuscular HGB Conc 32.1 g/dl (31.0-37.0); Mean Corpuscular Hemoglobin 29.5 pg (25.0-35.0); Mean Corpuscular Volume 92 fL (80-100); Monocytes # (Auto) 0.3 Thou/mm3 (0.0-0.8); Monocytes % (Auto) 5 % (0-12); Neutrophils # (Auto) 2.1 Thou/mm3 (1.8-7.7); Neutrophils % (Auto) 44 % (37-80); Nucleated Red Blood Cell # 0.00 Thou/mm3 (0.00-0.00); Nucleated Red Blood Cell % 0 /100 WBC (0); Platelet Count 198 Thou/mm3 (140-440); RDW Standard Deviation 47.8 fL (35.1-43.9); Red Blood Count 3.97 Miln/mm3 (4.50-5.90); White Blood Count 4.7 Thou/mm3 (3.8-10.6)
[2025-07-18 13:34] LABS: INR 1.1 (0.9-1.3); Partial Thromboplastin Time 27.0 Seconds (22.0-36.0); Prothrombin Time 11.7 Seconds (9.0-12.2)
[2025-07-18 14:04] VITALS: BMI 26.4
[2025-07-19] VITALS (9 sets, daily range): BP systolic 119–154; BP diastolic 65–88; PULSE 48–68; RESP 12–17; TEMP 36.3; O2SAT 95–100
--- NOTE | 2025-07-19 09:30 | XR_ITS ---
Examination: Venous access implantation Port-A-Cath .Ultrasound-guided needle placement right internal jugular vein. Fluoroscopy AP Chest, portable single view Exam date and time: July 19, 2025 0934 hours INDICATIONS: Diagnosis malignant neoplasm prostate, requiring long-term intravenous chemotherapy. Informed consent provided Technique: A timeout was completed, verifying correct patient, procedure, site, positioning, and special equipment if applicable The patient was placed in a dependent position appropriate for central line placement based on the vein to be cannulated. The patient's right neck was prepped and draped in sterile fashion. Maximum Sterile Barrier Technique used including cap, mask, sterile gown, sterile gloves, and sterile full body drape. If ultrasound technique used: sterile gel and sterile probe covers. Hand Hygiene performed using proper scrub, soap and water, or alcohol-based hand rub. Site right portable apparatus utilized to confirm patency of the right internal jugular vein. Utilizing ultrasonographic guidance successful 21-gauge needle puncture into the right internal jugular vein Ultrasound images were recorded and stored. Successful micropuncture with a 21-gauge needle was performed. 0.18 wire guide was introduced into the IVC under fluoroscopic guidance. The wires is then exchanged for a 0.25 J-wire guide placed in the vena cava. Blunt dissection utilized for formation of a subcutaneous pocket in the upper right chest Port-A-Cath connected to a 20 cm 8 Austrian catheter placed through a venous sheath into the superior vena cava in proper position, the Port-A-Cath dissection site sutured closed The attending radiologist was present for the entire procedure Estimated blood loss3 cc. Findings: Under fluoroscopy, the tip of the Port-A-Cath is in good position in the vena cava. Portable chest x-ray, post Port-A-Cath placement, as ordered. Impression: Successful ultrasound-guided needle placement right internal jugular vein. Successful IR venous implantation Port-A-Cath. Fluoroscopy 0.2 minute radiation dose 4.33 milligray 1 spot fluoroscopic chest film. AP portable chest completion procedure demonstrates satisfactory position Port-A-Cath tip SVC. May use Port-A-Cath
[2025-07-19] MEDS: SODIUM CHLORIDE 0.9% 500 ML 500 ML 20 ML IV (09:56)
[2025-07-19] MEDS: fentaNYL CIT INJ 50 mCg/ML AMP 2ML 100 MCG IVP (10:35)
[2025-07-19] MEDS: LIDOCAINE 1% W/EPI 1:100K 20 ML VIAL 5 ML INFL (10:37)
[2025-07-19] MEDS: LIDOCAINE INJ PF 1% 30 ML VIAL 5 ML EPID (10:37)
[2025-07-19] MEDS: HEPARIN SOD LOCK SYR 100 UNIT/ML 500 UNIT STFIELD (10:37)
== END 2025-07-19 11:55 | disposition home or self-care (01) ==
PROVIDERS: Radiology Diagnostic Radiology; PCP Physician Assistant Medical; Referring Provider Internal Medicine Hematology & Oncology; Visit Provider Internal Medicine Hematology & Oncology
DX: C61 Malignant neoplasm of prostate (principal); C79.51 Secondary malignant neoplasm of bone; Z01.812 Encounter for preprocedural laboratory examination
CPT/HCPCS: 36558; 36415; 76937; 77001; 85025; 85610; 85730; C1769; C1788; C1894; J1642; J3010; J3490; J7050; J7999

== ENCOUNTER 2025-07-25 09:13 | Outpatient (RCR) | payer MEDICAID, SELFPAY ==
--- NOTE | 2025-07-10 03:14 | CTCFLWUP_ITS ---
Patient: ANNEL PARKS : 1985 Page 2 of 3 FOLLOW UP NOTE DATE OF SERVICE: 07/05/2025 NAME: ANNEL PARKS ACCOUNT: [id number] : 1985 AGE: 40 INTERVAL HISTORY: Subjective Chief Complaint Follow-up for prostate cancer treatment, high PSA levels History of Present Illness Annel Suggs is a young male patient with stage 4 prostate cancer presenting for follow-up. He was initially seen on May 16 and started on cancer treatment, including Casodex and Lupron. The patient reports ongoing pain, for which he has been taking hydrocodone. He received a Lupron injection last month, which is administered every three months. He has been taking multiple medications for his prostate cancer, including Xtandi (enzalutamide) and Zytiga (abiraterone), along with prednisone. The patient mentions taking two pills for his prostate. Mr. Prabhjot Suggs has completed dental clearance as requested. He has been adherent to his prescribed medications, including stopping finasteride as instructed and starting new medications within two days of receiving them. The patient's PSA levels have shown improvement since starting treatment, decreasing from 961 before treatment to 286 in April, and most recently to 212 on June 19. The patient also appears to have liver concerns, with high keratin levels noted. He has been advised to avoid alcohol and limit Tylenol use due to his liver condition. The oncologist has emphasized the importance of reducing pain medication use as the patient's cancer goes into remission to prevent potential addiction. Medications and Supplements - Lupron - Injection given in May. Given every three months. - Adzitiga (Abiraterone) - Taking 4 tablets daily. - Casodex (Bicalutamide) - Taken before starting Lupron. - Prednisone - Taken together with Abiraterone. - Tamsulosin - Taken for prostate. - Hydrocodone - Taken for pain. - Finasteride - Discontinued. Review of Systems Musculoskeletal: Positive for pain. Objective Laboratory, Imaging, and Diagnostic Test Results - Date: 06/19/2025 - PSA: 212 - Previous results: - PSA: 961 (before treatment), 286 (April 2025) - Testosterone: High (April 2025) DIAGNOSIS: Malignant neoplasm of prostate [ICD10] C61 DATE OF DIAGNOSIS: 2024 STAGE/TNM: Prostatic adenocarcinoma D[place]a score 9] 4+5 Grade group 6 and 6 out of the 8 cores involved 35% of the needle core tissue ONCOLOGY HISTORY: DIAGNOSIS: Malignant neoplasm of prostate [ICD10] C61 DATE OF DIAGNOSIS: 2024 STAGE/TNM: Prostatic adenocarcinoma D[place]a score 9] 4+5 Grade group 6 and 6 out of the 8 cores involved 35% of the needle core tissue TREATMENT HISTORY: Care?Plan Start?Date Cycle Day Intent Docetaxel?75mg/m2 05/15/2025 1 21 Palliative Zoledronic?Acid?4?mg 07/05/2025 1 90 Palliative HISTORY OF PRESENT ILLNESS: Subjective: Chief Complaint Prostate cancer follow-up, leg pain starting in January History of Present Illness Annel Parks, a 40-year-old male with recently diagnosed high-risk prostate cancer, presents for oncology evaluation and treatment planning. The patient reports feeling good overall but is here due to his cancer diagnosis. Mr. Parks's symptoms began in January 2025 when he started experiencing leg pain. X-rays were performed, leading to the discovery of cancer. On March 30, 2025, he underwent a prostate biopsy at a local facility, which revealed prostatic adenocarcinoma with a [place] score of 9 in the left lobe of the prostate. The patient denies any prior urinary symptoms, stating he would urinate normally when waking up at 4 a.m. for work. He has been taking oral medications prescribed by Dr. Rodrigez since March but has not received any injections. The patient's cancer appears to be extensive, involving multiple bones and lymph nodes, including some in the chest cavity. Despite the advanced stage of his disease, Mr. Parks reports feeling well and has even gained weight recently. He expresses a desire to visit his mother, who recently learned about his cancer diagnosis, for a week. 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 His coworker, who was also exposed, became ill and subsequently after 15 days in a coma. The patient denies any family history of prostate cancer or breast cancer. He has not experienced issues with urination, such as weak stream or dribbling, despite having an enlarged prostate. Medications and Supplements - Casodex - Taking since March - Vitamin D3 3000 IU by mouth daily - Lupron (leuprolide for depot) injection - Was prescribed but not received yet Review of Systems General: Positive for leg pain. Genitourinary: Positive for dribbling of urine and weak stream. Negative for difficulty urinating. Objective: Laboratory, Imaging, and Diagnostic Test Results - Date: March 30, 2025 - Prostate biopsy: Left lobe of the prostate showed prostatic adenocarcinoma with a [place] score of 9 - PSA: 1049 - Ferritin: 5000 OTHER MEDICAL HISTORY/CONDITIONS: Prostate cancer [facility] - 12 yrs jaycee - treated Left?ankle?surgery?-?01/23 FAMILY HISTORY: Patient?denies?family?cancer?history. SOCIAL HISTORY: Occupational?History:?Unemployed Education?Level:?Completed 8th grade Marital?Status:? Tobacco?Use:?Denies ETOH?Use:?Denies Drug?Note:?Denies Social History Note:?Lives with ; 3 sons; [id number] [employer] HISTORY: MEDICATIONS: 1. abiraterone - 250 mg 4 tab Daily 2. Compazine - 5 mg 5 mg Daily 3. dexamethasone - 4 mg 8 mg Daily 4. Flomax - 0.4 mg 1 Capsule Daily 5. HYDROcodone-acetaminophen - 10-325 mg 1 - 2 tab q6 6. ondansetron - 8 mg 8 mg Daily 7. prednisone - 5 mg 1 tab twice Daily Medications Last Reconciled by Christiane Nelson MA on 07/05/2025 ALLERGIES: cephalexin REVIEW OF SYSTEMS: A complete 14-point review of systems was performed and is negative except as noted in interval history. PHYSICAL EXAMINATION: VITAL SIGNS: Temperature?97.8, B/P?119/66, Oxygen?Saturation?99% GENERAL APPEARANCE: Appears well, in no apparent distress, appropriately interactive. HEENT: Normocephalic, no temporal wasting, normal conjunctiva, no scleral icterus, normal hearing, lips without lesions, neck normal range of motion. CARDIOVASCULAR: Not assessed. PULMONARY: Normal respiratory effort, no respiratory distress or use of accessory muscles, speaking in full sentences, no tachypnea. EXTREMITIES: No pedal edema or cyanosis. SKIN: Normal skin appearance. NEUROLOGIC: Alert and oriented x4. PSHYCHIATRIC: Appropriate affect, mood normal, behavior normal, intact thought and speech. LABORATORY DATA: I have personally reviewed and interpreted each of the patient?s relevant lab tests, abnormal findings are below: Date 04/01/25 05/31/25 ??WHITE?BLOOD?COUNT?(Thou/mm3) ? 4.6 ??RED?BLOOD?COUNT?(Miln/mm3) ? 3.46?L ??HEMOGLOBIN?(gm/dl) ? 10.1?L ??HEMATOCRIT?(%) ? 29.9?L ??PLATELET?COUNT?(Thou/mm3) ? 184 ??NEUTROPHILS?%,?AUTO?(%) ? 50 ??LYMPH?%,?AUTO?(%) ? 42 ??NEUTROPHILS,?AUTO?(Thou/mm3) ? 2.3 ??GLUCOSE,RANDOM?(mg/dL) 103 107?H ??BLOOD?UREA?NITROGEN?(mg/dL) 17 19 ??CREATININE?(mg/dL) 1.00 0.80 ??SODIUM?(mmol/L) 138 141 ??POTASSIUM?(mmol/L) 4.2 3.8 ??CHLORIDE?(mmol/L) 99 108?H ??CrCl?(CandG)?(ml/min) 106.03 131.44 ??AST/SGOT?(Unit/L) 42?H 20 ??ALT/SGPT?(Unit/L) 40 12 ??ALKALINE?PHOSPHATASE?(Unit/L) 115 163?H ??BILIRUBIN,?TOTAL?(mg/dL) 1.1 0.8 ??PROTEIN?TOTAL?(gm/dl) 6.5 7.0 ??ALBUMIN,?SERUM?(gm/dl) 3.7 4.5 ??GLOBULIN?(gm/dl) 2.8 2.5 ??ALBUMIN/GLOBULIN?RATIO 1.3 1.8 ??CALCIUM,?SERUM?(mg/dL) 9.0 9.3 ??CALCIUM?SERUM?(CORRECTED)?(mg/dL) 9.2 9.3 ??MAGNESIUM?(mg/dL) 1.7 ? ASSESSMENT/PLAN: Assessment and Plan: Annel Parks, a 40-year-old male with newly diagnosed high-risk prostate cancer, presenting for oncology evaluation and treatment planning. High-risk prostate adenocarcinoma, stage 4B Assessment: Patient was diagnosed with prostate cancer following a biopsy on March 30, 2025, which revealed prostatic adenocarcinoma with a [place] score of 9 in the left lobe. Imaging studies indicate extensive disease with lymph node involvement in the chest cavity and bone metastases, consistent with at least stage 4B disease. PSA is markedly elevated at 1049. The patient is unusually young for this diagnosis at 39 years old, raising concern for genetic predisposition. He initially presented with leg pain in January, but denies prior urinary symptoms. The high-risk nature of the cancer and the patient's young age warrant aggressive treatment and consideration for clinical trials or novel therapies at a higher-level center. Patient already started on- Lupron (leuprolide for depot) injection every 3 months - Zytiga (abiraterone) 4 tablets daily - Prednisone 5 mg PO twice daily - Start chemotherapy: Docetaxel every 3 weeks for at least 6 cycles - - Order PSMA PET scan to confirm extent of metastatic disease - Perform genetic testing: - Germline and somatic mutation testing - BRCA mutation testing - Initiate Vitamin D3 3000 IU daily - Patient already have port catheter - Defer bone-strengthening medication (e.g., Prolia) for 6 months due to dental issues - Refer to higher-level center ([facility] or [facility]) for evaluation of advanced treatment options - Patient responding very well as his TSH testosterone level has come down Assessment and Plan Annel Suggs, a young male patient with stage 4 prostate cancer, presenting for ongoing management and treatment planning. Stage 4 Prostate Cancer Assessment: Patient has stage 4 prostate cancer with a history of elevated PSA levels. Initial PSA was 961, which decreased to 286 in April after starting treatment. Most recent PSA from June 19 was 212, indicating a response to current therapy. Patient is currently on hormone therapy with Lupron (adm inistered in May, every 3 months) and oral medications including Xtandi (enzalutamide) and prednisone. Previously, the patient was on Casodex (bicalutamide) before transitioning to the current regimen. The patient's testosterone levels remain high despite Lupron therapy, which is concerning and requires further investigation. Given the patient's young age and aggressive disease, we are pursuing aggressive treatment with the goal of achieving complete remission. Plan: - Continue current hormone therapy regimen: - Lupron injection every 3 months (next dose due in August) - Xtandi (enzalutamide) tablets daily - Prednisone tablets daily - Order PET-CT scan to assess current disease status - Check PSA levels today - Initiate chemotherapy once insurance authorization is obtained - Add zoledronic acid infusion every 3 months for bone health (pending insurance approval) - Refer to [facility] for second opinion and potential future treatment options - Educate patient on: - Importance of medication adherence - Plant-based diet recommendations - Reducing alcohol intake - Follow up with nurses for chemotherapy education and scheduling - Convert future appointments to video or telephone as appropriate, prioritizing chemotherapy appointments Liver Abnormalities Assessment: Patient has elevated keratin levels, suggesting underlying liver issues unrelated to prostate cancer. Further investigation is needed to determine the cause and extent of liver dysfunction. Plan: - Order special MRI scan or fibroscan to assess liver iron content and fibrosis - Advise patient to avoid alcohol and acetaminophen completely - Educate patient on liver-protective measures - Follow up on imaging results to determine next steps in liver management Pain Management Assessment: Patient is currently taking hydrocodone for pain management. However, with improving PSA levels and expected disease response, pain levels should decrease. There is concern about potential overuse and risk of dependence on pain medication. Plan: - Gradually reduce hydrocodone usage to maximum 1-2 tablets per day as needed - Educate patient on risks of opioid dependence and acetaminophen toxicity - Encourage use of non-pharmacological pain management techniques - Reassess pain levels at follow-up appointments Ferritinemia Assessment: Patient's ferritin level is significantly elevated at 5000, suggesting possible anemia of chronic disease associated with advanced prostate cancer. Plan: - Monitor complete blood count during treatment - Reassess ferritin levels with follow-up labs Will check for JAK2 mutation Liver ultrasound Dental issues Assessment: Patient reports a loose tooth requiring extraction, which impacts the ability to start bone-strengthening medication for metastatic bone disease. Plan: - Refer to dentist for extraction of loose tooth and comprehensive dental evaluation - Defer bone-strengthening medication (e.g., Zometa, Prolia) for 6 months to allow for dental healing - Reassess eligibility for bone-strengthening medication in 6 monthsOTHER MEDICAL HISTORY/CONDITIONS: Prostate cancer Hx [facility] - 12 yrs jaycee - treated Left?ankle?surgery?-?01/23 ORDERS: Order # Description [id number] Basic Metabolic Panel [id number] Lab Appointment [id number] Infusion 1 Hour [id number] Basic Metabolic Panel [id number] Lab Appointment [id number] Infusion 1 Hour [id number] Basic Metabolic Panel [id number] Lab Appointment [id number] Infusion 1 Hour [id number] Basic Metabolic Panel [id number] Lab Appointment [id number] Infusion 1 Hour [id number] Basic Metabolic Panel [id number] Lab Appointment [id number] Infusion 1 Hour [id number] Basic Metabolic Panel [id number] Lab Appointment [id number] Infusion 1 Hour [id number] Basic Metabolic Panel [id number] Lab Appointment [id number] Infusion 1 Hour [id number] Basic Metabolic Panel [id number] Lab Appointment [id number] Infusion 1 Hour [id number] Basic Metabolic Panel [id number] Lab Appointment [id number] Infusion 1 Hour [id number] Basic Metabolic Panel [id number] Lab Appointment [id number] Infusion 1 Hour [id number] Basic Metabolic Panel [id number] Lab Appointment [id number] Infusion 1 Hour [id number] Basic Metabolic Panel [id number] Lab Appointment RETURN TO CLINIC: I reviewed the diagnosis, prognosis, and recommended treatment/procedure options with the patient (and/or their legal premium service representative), including the potential benefits, risks, side effects and alternative therapies. We also discussed the option of no treatment and the possibility of clinical trial participation, if applicable. All questions were addressed, and they demonstrated understanding. They provided informed consent to proceed with the proposed plan of care. BILLING AND COMPLIANCE: I reviewed external records from providers outside my specialty as summarized above. I spent a total of 50 minutes on this patient?s care on the day of their visit excluding time spent related to any billed procedures. This time includes time spent with the patient as well as time spent documenting in the medical record, reviewing patients records and tests, obtaining history, placing orders, communicating with other healthcare professionals, counseling the patient, family or caregiver, and/or care coordination for the diagnoses above. Electronically Signed by: Reynaldo Floyd MD T: 3:11 AM CC: PCP: Referring: Preeti Pennington This document was completed utilizing speech recognition software. Grammatical errors, random word insertions, pronoun errors, and incomplete sentences are an occasional consequence of this system due to software limitations, ambient noise, and hardware issues. Any formal questions or concerns about the content, text or information contained within the body of this dictation should be directly addressed to the provider for clarification.
[2025-07-24 15:46] LABS: Basophils # (Auto) 0.0 Thou/mm3 (0.0-0.2); Basophils % (Auto) 0 % (0-2.5); Eosinophils # (Auto) 0.0 Thou/mm3 (0.0-0.5); Eosinophils % (Auto) 0 % (0-10); Hematocrit 35.7 % (41.0-53.0); Hemoglobin 12.2 g/dL (13.5-16.0); Immature Granulocytes Auto 0.02 Thou/mm3 (0.00-0.00); Lymphocytes # (Auto) 0.7 Thou/mm3 (1.0-4.8); Lymphocytes % (Auto) 11 % (10-50); Mean Corpuscular HGB Conc 34.2 g/dl (31.0-37.0); Mean Corpuscular Hemoglobin 30.3 pg (25.0-35.0); Mean Corpuscular Volume 89 fL (80-100); Monocytes # (Auto) 0.1 Thou/mm3 (0.0-0.8); Monocytes % (Auto) 1 % (0-12); Neutrophils # (Auto) 5.5 Thou/mm3 (1.8-7.7); Neutrophils % (Auto) 88 % (37-80); Nucleated Red Blood Cell # 0.00 Thou/mm3 (0.00-0.00); Nucleated Red Blood Cell % 0 /100 WBC (0); Platelet Count 210 Thou/mm3 (140-440); RDW Standard Deviation 45.1 fL (35.1-43.9); Red Blood Count 4.03 Miln/mm3 (4.50-5.90); White Blood Count 6.2 Thou/mm3 (3.8-10.6)
[2025-07-24 16:05] LABS: Alanine Aminotransferase 19 U/L (10-49); Albumin, Serum 4.6 gm/dL (3.5-5.0); Albumin/Globulin Ratio 2.0 (1.2-2.2); Alkaline Phosphatase 137 U/L (46-116); Anion Gap 13 (7-16); Aspartate Amino Transferase 20 U/L (0-34); BUN/Creatinine Ratio 21 Ratio (12-20); Bilirubin,Total 0.6 mg/dL (0.3-1.2); Blood Urea Nitrogen 21 mg/dL (9-23); Calcium 10.2 mg/dL (8.3-10.6); Calcium (Corrected) 10.2 mg/dL (8.5-10.1); Carbon Dioxide 24.5 mMol/L (20.0-31.0); Chloride 104 mMol/L (98-107); Creatinine (Component) 1.0 mg/dL (0.6-1.3); Globulin 2.3 gm/dL (2.3-3.5); Glucose 127 mg/dL (74-106); Osmolality,Calculated 286 (275-295); Potassium 4.3 mMol/L (3.4-5.1); Sodium 141 mMol/L (136-145); Total Protein 6.9 gm/dL (5.7-8.2); eGFR > 60 See Note
[2025-07-24 16:27] LABS: Prostate Specific Antigen 234.01 ng/mL (0-4.00)
== END 2025-07-30 23:59 | disposition home or self-care (01) ==
LOC: SCTC 09:13
PROVIDERS: PCP Physician Assistant Medical; Referring Provider Physician Assistant Medical; Visit Provider Internal Medicine Hematology & Oncology
DX: Z51.11 Encounter for antineoplastic chemotherapy (principal); C61 Malignant neoplasm of prostate; C79.51 Secondary malignant neoplasm of bone; K08.89 Other specified disorders of teeth and supporting structures; R79.89 Other specified abnormal findings of blood chemistry; K76.89 Other specified diseases of liver
CPT/HCPCS: 36591; 80053; 84153; 85025; 96367; 96413; 99211; 99213; A4216; J1100; J1453; J1642; J2405; J7040; J7050; J9171; G0463

== ENCOUNTER → 2025-08-08 | Outpatient (BNVA) | payer MEDICAID, SELFPAY | END | disposition home or self-care (01) | PROVIDERS: PCP Physician Assistant Medical; Referring Provider Physician Assistant Medical; Visit Provider Urology | DX: N40.1 Benign prostatic hyperplasia with lower urinary tract symptoms (principal); N13.8 Other obstructive and reflux uropathy; C61 Malignant neoplasm of prostate; C79.51 Secondary malignant neoplasm of bone; E11.9 Type 2 diabetes mellitus without complications | CPT/HCPCS: 81003; 99212; G0463 ==

== ENCOUNTER 2025-08-15 08:18 | Outpatient (RCR) | payer MEDICAID, SELFPAY ==
--- NOTE | 2025-08-09 09:11 | CTCFLWUP_ITS ---
[facility] [address] [place], [place] [address] FOLLOW-UP NOTE Date: 08/09/2025 MR#: [id number] Name: ANNEL BACA : 1985 Dx: C61 Malignant neoplasm of prostate Identification. Patient with prostate CA [place] grade 9 group 5. Initial PSA 1149 PET scan 03/28/2025 extensive metastatic mediastinal abdominal pelvic lymphadenopathy with widespread osseous mets disease. MRI of cervical thoracic lumbar spine 04/10/1995 showed osseous mets disease but no impending fractures or neurological involvement. PSMA PET 07/10/2025 shows extensive bony mets skull spine axial skeleton pelvis no pathological fractures. As I see him today patient appears quite comfortable and having pain well- controlled with hydrocodone 10 1-2 Q6 as needed A#1. Stage IV prostate CA with widespread mets A#2. Patient now seeing Dr. Floyd who has prescribed Xtandi prednisone in addition to Lupron and has scheduled him for chemotherapy as well. Zometa following dental work completed. A#2. Doing well clinically with pain controlled with hydrocodone 10 every 6 as needed A#3. I will see him in 3 months for evaluation of pain and for pain management. [employer] website checked. Electronically signed by: Kalyan Rodrigez M.D. 08/09/2025 9:08 AM
[2025-08-14 16:09] LABS: Basophils # (Auto) 0.0 Thou/mm3 (0.0-0.2); Basophils % (Auto) 0 % (0-2.5); Eosinophils # (Auto) 0.0 Thou/mm3 (0.0-0.5); Eosinophils % (Auto) 0 % (0-10); Hematocrit 38.0 % (41.0-53.0); Hemoglobin 12.5 g/dL (13.5-16.0); Immature Granulocytes Auto 0.04 Thou/mm3 (0.00-0.00); Lymphocytes # (Auto) 0.6 Thou/mm3 (1.0-4.8); Lymphocytes % (Auto) 5 % (10-50); Mean Corpuscular HGB Conc 32.9 g/dl (31.0-37.0); Mean Corpuscular Hemoglobin 28.7 pg (25.0-35.0); Mean Corpuscular Volume 87 fL (80-100); Monocytes # (Auto) 0.1 Thou/mm3 (0.0-0.8); Monocytes % (Auto) 1 % (0-12); Neutrophils # (Auto) 10.3 Thou/mm3 (1.8-7.7); Neutrophils % (Auto) 93 % (37-80); Nucleated Red Blood Cell # 0.00 Thou/mm3 (0.00-0.00); Nucleated Red Blood Cell % 0 /100 WBC (0); Platelet Count 236 Thou/mm3 (140-440); RDW Standard Deviation 44.7 fL (35.1-43.9); Red Blood Count 4.35 Miln/mm3 (4.50-5.90); White Blood Count 11.0 Thou/mm3 (3.8-10.6)
[2025-08-14 16:28] LABS: Prostate Specific Antigen 95.83 ng/mL (0-4.00)
[2025-08-14 16:31] LABS: Alanine Aminotransferase 16 U/L (10-49); Albumin, Serum 4.4 gm/dL (3.5-5.0); Albumin/Globulin Ratio 2.1 (1.2-2.2); Alkaline Phosphatase 123 U/L (46-116); Anion Gap 10 (7-16); Aspartate Amino Transferase 18 U/L (0-34); BUN/Creatinine Ratio 21 Ratio (12-20); Bilirubin,Total 0.7 mg/dL (0.3-1.2); Blood Urea Nitrogen 17 mg/dL (9-23); Calcium 9.8 mg/dL (8.3-10.6); Calcium (Corrected) 9.8 mg/dL (8.5-10.1); Carbon Dioxide 23.0 mMol/L (20.0-31.0); Chloride 109 mMol/L (98-107); Creatinine (Component) 0.8 mg/dL (0.6-1.3); Globulin 2.1 gm/dL (2.3-3.5); Glucose 131 mg/dL (74-106); Osmolality,Calculated 286 (275-295); Potassium 4.2 mMol/L (3.4-5.1); Sodium 142 mMol/L (136-145); Total Protein 6.5 gm/dL (5.7-8.2); eGFR > 60 See Note
== END 2025-08-29 23:59 | disposition home or self-care (01) ==
LOC: SCTC 08:18
PROVIDERS: Internal Medicine Hematology & Oncology; PCP Physician Assistant Medical; Referring Provider Radiology Therapeutic Radiology; Visit Provider Radiology Therapeutic Radiology
DX: Z51.11 Encounter for antineoplastic chemotherapy (principal); C61 Malignant neoplasm of prostate; C79.51 Secondary malignant neoplasm of bone; C78.1 Secondary malignant neoplasm of mediastinum; C79.89 Secondary malignant neoplasm of other specified sites
CPT/HCPCS: 36591; 80053; 84153; 85025; 96367; 96413; 99213; A4216; J1100; J1453; J1642; J2405; J3490; J7040; J7050; J7060; J9171; G0463

== ENCOUNTER 2025-09-27 08:26 | Outpatient (RCR) | payer MEDICAID, SELFPAY ==
[2025-09-04 10:33] LABS: Basophils # (Auto) 0.0 Thou/mm3 (0.0-0.2); Basophils % (Auto) 1 % (0-2.5); Eosinophils # (Auto) 0.0 Thou/mm3 (0.0-0.5); Eosinophils % (Auto) 0 % (0-10); Hematocrit 37.0 % (41.0-53.0); Hemoglobin 12.1 g/dL (13.5-16.0); Immature Granulocytes Auto 0.01 Thou/mm3 (0.00-0.00); Lymphocytes # (Auto) 1.6 Thou/mm3 (1.0-4.8); Lymphocytes % (Auto) 47 % (10-50); Mean Corpuscular HGB Conc 32.7 g/dl (31.0-37.0); Mean Corpuscular Hemoglobin 28.1 pg (25.0-35.0); Mean Corpuscular Volume 86 fL (80-100); Monocytes # (Auto) 0.2 Thou/mm3 (0.0-0.8); Monocytes % (Auto) 4 % (0-12); Neutrophils # (Auto) 1.6 Thou/mm3 (1.8-7.7); Neutrophils % (Auto) 47 % (37-80); Nucleated Red Blood Cell # 0.00 Thou/mm3 (0.00-0.00); Nucleated Red Blood Cell % 0 /100 WBC (0); Platelet Count 208 Thou/mm3 (140-440); RDW Standard Deviation 44.9 fL (35.1-43.9); Red Blood Count 4.31 Miln/mm3 (4.50-5.90); White Blood Count 3.5 Thou/mm3 (3.8-10.6)
[2025-09-04 10:38] LABS: Alanine Aminotransferase 17 U/L (10-49); Albumin, Serum 4.4 gm/dL (3.5-5.0); Albumin/Globulin Ratio 2.2 (1.2-2.2); Alkaline Phosphatase 107 U/L (46-116); Anion Gap 10 (7-16); Aspartate Amino Transferase 20 U/L (0-34); BUN/Creatinine Ratio 19 Ratio (12-20); Bilirubin,Total 0.6 mg/dL (0.3-1.2); Blood Urea Nitrogen 13 mg/dL (9-23); Calcium 9.4 mg/dL (8.3-10.6); Calcium (Corrected) 9.4 mg/dL (8.5-10.1); Carbon Dioxide 26.1 mMol/L (20.0-31.0); Chloride 106 mMol/L (98-107); Creatinine (Component) 0.7 mg/dL (0.6-1.3); Globulin 2.0 gm/dL (2.3-3.5); Glucose 142 mg/dL (74-106); Osmolality,Calculated 285 (275-295); Potassium 3.8 mMol/L (3.4-5.1); Sodium 142 mMol/L (136-145); Total Protein 6.4 gm/dL (5.7-8.2); eGFR > 60 See Note
[2025-09-04 10:41] LABS: Prostate Specific Antigen 25.91 ng/mL (0-4.00)
--- NOTE | 2025-09-10 22:59 | CTCFLWUP_ITS ---
Patient: ANNEL PARKS : 1985 Page 4 of 7 FOLLOW UP NOTE DATE OF SERVICE: 09/05/2025 NAME: ANNEL PARKS ACCOUNT: [id number] : 1985 AGE: 40 INTERVAL HISTORY:Subjective Chief Complaint Follow-up for prostate cancer treatment, high PSA levels History of Present Illness Annel Suggs is a young male patient with stage 4 prostate cancer presenting for follow-up. He was initially seen on May 16 and started on cancer treatment, including Casodex and Lupron. The patient reports ongoing pain, for which he has been taking hydrocodone. He received a Lupron injection last month, which is administered every three months. He has been taking multiple medications for his prostate cancer, including Xtandi (enzalutamide) and Zytiga (abiraterone), along with prednisone. The patient mentions taking two pills for his prostate. Mr. Prabhjot Suggs has completed dental clearance as requested. He has been adherent to his prescribed medications, including stopping finasteride as instructed and starting new medications within two days of receiving them. The patient's PSA levels have shown improvement since starting treatment, decreasing from 961 before treatment to 286 in April, and most recently to 212 on June 19. The patient also appears to have liver concerns, with high keratin levels noted. He has been advised to avoid alcohol and limit Tylenol use due to his liver condition. The oncologist has emphasized the importance of reducing pain medication use as the patient's cancer goes into remission to prevent potential addiction. Medications and Supplements - Lupron - Injection given in May. Given every three months. - Adzitiga (Abiraterone) - Taking 4 tablets daily. - Casodex (Bicalutamide) - Taken before starting Lupron. - Prednisone - Taken together with Abiraterone. - Tamsulosin - Taken for prostate. - Hydrocodone - Taken for pain. - Finasteride - Discontinued. Review of Systems Musculoskeletal: Positive for pain. Objective Laboratory, Imaging, and Diagnostic Test Results - Date: 09/04/2025 PSA 25.91 06/19/2025 - PSA: 212 - Previous results: - PSA: 961 (before treatment), 286 (April 2025) - Testosterone: High (April 2025) Subjective Chief Complaint Follow-up for prostate cancer treatment, high PSA levels History of Present Illness Annel Suggs is a young male patient with stage 4 prostate cancer presenting for follow-up. He was initially seen on May 16 and started on cancer treatment, including Casodex and Lupron. The patient reports ongoing pain, for which he has been taking hydrocodone. He received a Lupron injection last month, which is administered every three months. He has been taking multiple medications for his prostate cancer, including Xtandi (enzalutamide) and Zytiga (abiraterone), along with prednisone. The patient mentions taking two pills for his prostate. Mr. Prabhjot Suggs has completed dental clearance as requested. He has been adherent to his prescribed medications, including stopping finasteride as instructed and starting new medications within two days of receiving them. The patient's PSA levels have shown improvement since starting treatment, decreasing from 961 before treatment to 286 in April, and most recently to 212 on June 19. The patient also appears to have liver concerns, with high keratin levels noted. He has been advised to avoid alcohol and limit Tylenol use due to his liver condition. The oncologist has emphasized the importance of reducing pain medication use as the patient's cancer goes into remission to prevent potential addiction. Medications and Supplements - Lupron - Injection given in May. Given every three months. - Adzitiga (Abiraterone) - Taking 4 tablets daily. - Casodex (Bicalutamide) - Taken before starting Lupron. - Prednisone - Taken together with Abiraterone. - Tamsulosin - Taken for prostate. - Hydrocodone - Taken for pain. - Finasteride - Discontinued. Review of Systems Musculoskeletal: Positive for pain. Objective Laboratory, Imaging, and Diagnostic Test Results - Date: 06/19/2025 - PSA: 212 - Previous results: - PSA: 961 (before treatment), 286 (April 2025) - Testosterone: High (April 2025) ONCOLOGY HISTORY:?[facility] Hx? DIAGNOSIS: Malignant neoplasm of prostate [ICD10] C61 DATE OF DIAGNOSIS: 2024 STAGE/TNM: Prostatic adenocarcinoma Phoenix score 9] 4+5 Grade group 6 and 6 out of the 8 cores involved 35% of the needle core tissue TREATMENT HISTORY: Care?Plan Start?Date Cycle Day Intent Docetaxel?75mg/m2 05/15/2025 1 21 Palliative Zoledronic?Acid?4?mg 07/05/2025 1 90 Palliative Lupron?22.5?mg?q?3?mon 09/06/2025 1 90 Palliative HISTORY OF PRESENT ILLNESS: Subjective: Chief Complaint Prostate cancer follow-up, History of Present Illness Annel Parks, a 40-year-old male with recently diagnosed high-risk prostate cancer, presents for oncology evaluation and treatment planning. The patient reports feeling good overall but is here due to his cancer diagnosis. Mr. Parks's symptoms began in January 2025 when he started experiencing leg pain. X-rays were performed, leading to the discovery of cancer. On March 30, 2025, he underwent a prostate biopsy at a local facility, which revealed prostatic adenocarcinoma with a Phoenix score of 9 in the left lobe of the prostate. The patient denies any prior urinary symptoms, stating he would urinate normally when waking up at 4 a.m. for work. He has been taking oral medications prescribed by Dr. Rodrigez since March but has not received any injections. The patient's cancer appears to be extensive, involving multiple bones and lymph nodes, including some in the chest cavity. Despite the advanced stage of his disease, Mr. Parks reports feeling well and has even gained weight recently. He expresses a desire to visit his mother, who recently learned about his cancer diagnosis, for a week. 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 His coworker, who was also exposed, became ill and subsequently after 15 days in a coma. The patient denies any family history of prostate cancer or breast cancer. He has not experienced issues with urination, such as weak stream or dribbling, despite having an enlarged prostate. Medications and Supplements - Casodex - Taking since March - Vitamin D3 3000 IU by mouth daily - Lupron (leuprolide for depot) injection - Was prescribed but not received yet Review of Systems General: Positive for leg pain. Genitourinary: Positive for dribbling of urine and weak stream. Negative for difficulty urinating. Objective: Laboratory, Imaging, and Diagnostic Test Results - Date: March 30, 2025 - Prostate biopsy: Left lobe of the prostate showed prostatic adenocarcinoma with a Phoenix score of 9 - PSA: 1049 - Ferritin: 5000 OTHER MEDICAL HISTORY/CONDITIONS: Prostate cancer [facility] - 12 yrs jaycee - treated Left?ankle?surgery?-?01/23 FAMILY HISTORY: Patient?denies?family?cancer?history. SOCIAL HISTORY: Occupational?History:?Unemployed Education?Level:?Completed 8th grade Marital?Status:? Tobacco?Use:?Denies ETOH?Use:?Denies Drug?Note:?Denies Social History Note:?Lives with ; 3 sons; [id number] MEDICATIONS: 1. abiraterone - 250 mg 4 tab Daily 2. Compazine - 5 mg 5 mg Daily 3. dexamethasone - 4 mg 2 tab 2 tabs po twice a day starting 4. finasteride - 5 mg 1 tab Daily 5. Flomax - 0.4 mg 1 Capsule Daily 6. HYDROcodone-acetaminophen - 10-325 mg 1 - 2 tab q6 7. ondansetron - 8 mg 8 mg Daily 8. prednisone - 5 mg 1 tab twice Daily?[facility] Meds? Medications Last Reconciled by Christiane Mzt MD on 09/06/2025 ALLERGIES: cephalexin REVIEW OF SYSTEMS: A complete 14-point review of systems was performed and is negative except as noted in interval history. PHYSICAL EXAMINATION:?[facility] PE? VITAL SIGNS: PAIN: 0 - No pain ECOG Performance Status: 0 - Asymptomatic and fully active GENERAL APPEARANCE: Appears well, in no apparent distress, appropriately interactive. HEENT: Normocephalic, no temporal wasting, normal conjunctiva, no scleral icterus, normal hearing, lips without lesions, neck normal range of motion. CARDIOVASCULAR: Not assessed. PULMONARY: Normal respiratory effort, no respiratory distress or use of accessory muscles, speaking in full sentences, no tachypnea. EXTREMITIES: No pedal edema or cyanosis. SKIN: Normal skin appearance. NEUROLOGIC: Alert and oriented x4. PSHYCHIATRIC: Appropriate affect, mood normal, behavior normal, intact thought and speech. LABORATORY DATA: I have personally reviewed and interpreted each of the patient?s relevant lab tests, abnormal findings are below: Date 08/14/25 09/04/25 ??WHITE?BLOOD?COUNT?(Thou/mm3) 11.0?H 3.5?L ??RED?BLOOD?COUNT?(Miln/mm3) 4.35?L 4.31?L ??HEMOGLOBIN?(gm/dl) 12.5?L 12.1?L ??HEMATOCRIT?(%) 38.0?L 37.0?L ??PLATELET?COUNT?(Thou/mm3) 236 208 ??NEUTROPHILS?%,?AUTO?(%) 93?H 47 ??LYMPH?%,?AUTO?(%) 5?L 47 ??NEUTROPHILS,?AUTO?(Thou/mm3) 10.3?H 1.6?L ??GLUCOSE,RANDOM?(mg/dL) 131?H 142?H ??BLOOD?UREA?NITROGEN?(mg/dL) 17 13 ??CREATININE?(mg/dL) 0.80 0.70 ??SODIUM?(mmol/L) 142 142 ??POTASSIUM?(mmol/L) 4.2 3.8 ??CHLORIDE?(mmol/L) 109?H 106 ??CrCl?(CandG)?(ml/min) 125.95 147.47 ??AST/SGOT?(Unit/L) 18 20 ??ALT/SGPT?(Unit/L) 16 17 ??ALKALINE?PHOSPHATASE?(Unit/L) 123?H 107 ??BILIRUBIN,?TOTAL?(mg/dL) 0.7 0.6 ??PROTEIN?TOTAL?(gm/dl) 6.5 6.4 ??ALBUMIN,?SERUM?(gm/dl) 4.4 4.4 ??GLOBULIN?(gm/dl) 2.1?L 2.0?L ??ALBUMIN/GLOBULIN?RATIO 2.1 2.2 ??CALCIUM,?SERUM?(mg/dL) 9.8 9.4 ??CALCIUM?SERUM?(CORRECTED)?(mg/dL) 9.8 9.4 ASSESSMENT/PLAN:?Felicitas Floyd Assessment/Plan? Assessment and Plan: Annel Parks, a 40-year-old male with newly diagnosed high-risk prostate cancer, presenting for oncology evaluation and treatment planning. High-risk prostate adenocarcinoma, stage 4B Assessment: Patient was diagnosed with prostate cancer following a biopsy on March 30, 2025, which revealed prostatic adenocarcinoma with a [place] score of 9 in the left lobe. Imaging studies indicate extensive disease with lymph node involvement in the chest cavity and bone metastases, consistent with at least stage 4B disease. PSA is markedly elevated at 1049. The patient is unusually young for this diagnosis at 39 years old, raising concern for genetic predisposition. He initially presented with leg pain in January, but denies prior urinary symptoms. The high-risk nature of the cancer and the patient's young age warrant aggressive treatment and consideration for clinical trials or novel therapies at a higher-level center. Patient already started on- Lupron (leuprolide for depot) injection every 3 months - Zytiga (abiraterone) 4 tablets daily - Prednisone 5 mg PO twice daily - Start chemotherapy: Docetaxel every 3 weeks for at least 6 cycles - -PSMA scan reviewed and shows extensive metastatic disease - Perform genetic testing: - Germline and somatic mutation testing - BRCA mutation testing - Continue Vitamin D3 1000 IU daily - Patient already have port catheter - Defer bone-strengthening medication (e.g., Prolia) for 6 months due to dental issues - Refer to higher-level center ([facility] or [place]) for evaluation of advanced treatment options - Patient responding very well as his TSH testosterone level has come down . Initial PSA was 961, which decreased to 25 now Continue therapy Patient's naterra reviewed and shows great response to treatment Liver Abnormalities Assessment: Patient has elevated keratin levels, suggesting underlying liver issues unrelated to prostate cancer. Further investigation is needed to determine the cause and extent of liver dysfunction. Plan: - Order special MRI scan or fibroscan to assess liver iron content and fibrosis. Not completed still - Advise patient to avoid alcohol and acetaminophen completely - Educate patient on liver-protective measures - Follow up on imaging results to determine next steps in liver management Pain Management Assessment: Patient is currently taking hydrocodone for pain management. However, with improving PSA levels and expected disease response, pain levels should decrease. There is concern about potential overuse and risk of dependence on pain medication. Plan: - Gradually reduce hydrocodone usage to maximum 1-2 tablets per day as needed - Educate patient on risks of opioid dependence and acetaminophen toxicity - Encourage use of non-pharmacological pain management techniques - Reassess pain levels at follow-up appointments Ferritinemia Assessment: Patient's ferritin level is significantly elevated at 5000, suggesting possible anemia of chronic disease associated with advanced prostate cancer. Plan: - Monitor complete blood count during treatment - Reassess ferritin levels with follow-up labs Will check for JAK2 mutation Liver ultrasound Dental issues Assessment: Patient reports a loose tooth requiring extraction, which impacts the ability to start bone-strengthening medication for metastatic bone disease. 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 We also discussed the option of no treatment and the possibility of clinical trial participation, if applicable. All questions were addressed, and they demonstrated understanding. They provided informed consent to proceed with the proposed plan of care. BILLING AND COMPLIANCE: I reviewed external records from providers outside my specialty as summarized above. I spent a total of 50 minutes on this patient?s care on the day of their visit excluding time spent related to any billed procedures. This time includes time spent with the patient as well as time spent documenting in the medical record, reviewing patients records and tests, obtaining history, placing orders, communicating with other healthcare professionals, counseling the patient, family or caregiver, and/or care coordination for the diagnoses above. Electronically Signed by: Reynaldo Floyd MD T: 10:57 PM CC: PCP: Referring: Preeti Pennington This document was completed utilizing speech recognition software. Grammatical errors, random word insertions, pronoun errors, and incomplete sentences are an occasional consequence of this system due to software limitations, ambient noise, and hardware issues. Any formal questions or concerns about the content, text or information contained within the body of this dictation should be directly addressed to the provider for clarification.
[2025-09-26 09:53] LABS: Basophils # (Auto) 0.0 Thou/mm3 (0.0-0.2); Basophils % (Auto) 1 % (0-2.5); Eosinophils # (Auto) 0.0 Thou/mm3 (0.0-0.5); Eosinophils % (Auto) 0 % (0-10); Hematocrit 34.2 % (41.0-53.0); Hemoglobin 11.3 g/dL (13.5-16.0); Immature Granulocytes Auto 0.02 Thou/mm3 (0.00-0.00); Lymphocytes # (Auto) 1.5 Thou/mm3 (1.0-4.8); Lymphocytes % (Auto) 42 % (10-50); Mean Corpuscular HGB Conc 33.0 g/dl (31.0-37.0); Mean Corpuscular Hemoglobin 28.0 pg (25.0-35.0); Mean Corpuscular Volume 85 fL (80-100); Monocytes # (Auto) 0.1 Thou/mm3 (0.0-0.8); Monocytes % (Auto) 3 % (0-12); Neutrophils # (Auto) 2.0 Thou/mm3 (1.8-7.7); Neutrophils % (Auto) 54 % (37-80); Nucleated Red Blood Cell # 0.00 Thou/mm3 (0.00-0.00); Nucleated Red Blood Cell % 0 /100 WBC (0); Platelet Count 206 Thou/mm3 (140-440); RDW Standard Deviation 47.1 fL (35.1-43.9); Red Blood Count 4.04 Miln/mm3 (4.50-5.90); White Blood Count 3.6 Thou/mm3 (3.8-10.6)
[2025-09-26 10:11] LABS: Alanine Aminotransferase 15 U/L (10-49); Albumin, Serum 4.3 gm/dL (3.5-5.0); Albumin/Globulin Ratio 2.9 (1.2-2.2); Alkaline Phosphatase 92 U/L (46-116); Anion Gap 10 (7-16); Aspartate Amino Transferase 18 U/L (0-34); BUN/Creatinine Ratio 21 Ratio (12-20); Bilirubin,Total 1.0 mg/dL (0.3-1.2); Blood Urea Nitrogen 15 mg/dL (9-23); Calcium 8.9 mg/dL (8.3-10.6); Calcium (Corrected) 8.9 mg/dL (8.5-10.1); Carbon Dioxide 26.7 mMol/L (20.0-31.0); Chloride 106 mMol/L (98-107); Creatinine (Component) 0.7 mg/dL (0.6-1.3); Globulin 1.5 gm/dL (2.3-3.5); Glucose 174 mg/dL (74-106); Osmolality,Calculated 289 (275-295); Potassium 3.7 mMol/L (3.4-5.1); Sodium 143 mMol/L (136-145); Total Protein 5.8 gm/dL (5.7-8.2); eGFR > 60 See Note
[2025-09-26 10:13] LABS: Ferritin 225 ng/mL (10.5-307.3); Prostate Specific Antigen 14.09 ng/mL (0-4.00)
== END 2025-09-29 23:59 | disposition home or self-care (01) ==
LOC: SCTC 08:26
PROVIDERS: PCP Physician Assistant Medical; Referring Provider Physician Assistant Medical; Visit Provider Internal Medicine Hematology & Oncology
DX: Z51.11 Encounter for antineoplastic chemotherapy (principal); C61 Malignant neoplasm of prostate; C79.51 Secondary malignant neoplasm of bone; C77.1 Secondary and unspecified malignant neoplasm of intrathoracic lymph nodes; G89.3 Neoplasm related pain (acute) (chronic); K76.89 Other specified diseases of liver; R79.0 Abnormal level of blood mineral; K08.89 Other specified disorders of teeth and supporting structures
CPT/HCPCS: 36591; 80053; 82728; 84153; 85025; 96367; 96402; 96413; 99212; A4216; J1100; J1434; J1642; J2405; J3490; J7040; J7050; J7060; J9171; J9217; G0463

== ENCOUNTER 2025-10-18 08:23 | Outpatient (RCR) | payer MEDICAID, SELFPAY ==
[2025-10-17 15:19] LABS: Alanine Aminotransferase 14 U/L (10-49); Albumin, Serum 4.7 gm/dL (3.5-5.0); Albumin/Globulin Ratio 2.9 (1.2-2.2); Alkaline Phosphatase 100 U/L (46-116); Anion Gap 10 (7-16); Aspartate Amino Transferase 21 U/L (0-34); BUN/Creatinine Ratio 19 Ratio (12-20); Bilirubin,Total 0.7 mg/dL (0.3-1.2); Blood Urea Nitrogen 15 mg/dL (9-23); Calcium 9.4 mg/dL (8.3-10.6); Calcium (Corrected) 9.4 mg/dL (8.5-10.1); Carbon Dioxide 23.3 mMol/L (20.0-31.0); Chloride 108 mMol/L (98-107); Creatinine (Component) 0.8 mg/dL (0.6-1.3); Globulin 1.6 gm/dL (2.3-3.5); Glucose 170 mg/dL (74-106); Osmolality,Calculated 286 (275-295); Potassium 4.4 mMol/L (3.4-5.1); Prostate Specific Antigen 10.72 ng/mL (0-4.00); Sodium 141 mMol/L (136-145); Total Protein 6.3 gm/dL (5.7-8.2); eGFR > 60 See Note
[2025-10-17 15:21] LABS: Basophils # (Auto) 0.0 Thou/mm3 (0.0-0.2); Basophils % (Auto) 0 % (0-2.5); Eosinophils # (Auto) 0.0 Thou/mm3 (0.0-0.5); Eosinophils % (Auto) 0 % (0-10); Hematocrit 36.8 % (41.0-53.0); Hemoglobin 12.2 g/dL (13.5-16.0); Immature Granulocytes Auto 0.02 Thou/mm3 (0.00-0.00); Lymphocytes # (Auto) 0.5 Thou/mm3 (1.0-4.8); Lymphocytes % (Auto) 7 % (10-50); Mean Corpuscular HGB Conc 33.2 g/dl (31.0-37.0); Mean Corpuscular Hemoglobin 27.9 pg (25.0-35.0); Mean Corpuscular Volume 84 fL (80-100); Monocytes # (Auto) 0.0 Thou/mm3 (0.0-0.8); Monocytes % (Auto) 1 % (0-12); Neutrophils # (Auto) 7.1 Thou/mm3 (1.8-7.7); Neutrophils % (Auto) 92 % (37-80); Nucleated Red Blood Cell # 0.00 Thou/mm3 (0.00-0.00); Nucleated Red Blood Cell % 0 /100 WBC (0); Platelet Count 199 Thou/mm3 (140-440); RDW Standard Deviation 49.5 fL (35.1-43.9); Red Blood Count 4.38 Miln/mm3 (4.50-5.90); White Blood Count 7.6 Thou/mm3 (3.8-10.6)
== END 2025-10-29 23:59 | disposition home or self-care (01) ==
LOC: SCTC 08:23
PROVIDERS: PCP Physician Assistant Medical; Referring Provider Physician Assistant Medical; Visit Provider Internal Medicine Hematology & Oncology
DX: Z51.11 Encounter for antineoplastic chemotherapy (principal); C61 Malignant neoplasm of prostate; C79.51 Secondary malignant neoplasm of bone; R79.89 Other specified abnormal findings of blood chemistry
CPT/HCPCS: 36591; 80053; 84153; 85025; 96367; 96413; A4216; J1100; J1434; J1642; J2405; J3490; J7050; J9171

== ENCOUNTER 2025-11-14 13:49 | Outpatient (RCR) | payer MEDICAID, SELFPAY ==
[2025-11-07 11:53] LABS: Basophils # (Auto) 0.0 Thou/mm3 (0.0-0.2); Basophils % (Auto) 0 % (0-2.5); Eosinophils # (Auto) 0.0 Thou/mm3 (0.0-0.5); Eosinophils % (Auto) 0 % (0-10); Hematocrit 34.1 % (41.0-53.0); Hemoglobin 11.1 g/dL (13.5-16.0); Immature Granulocytes Auto 0.04 Thou/mm3 (0.00-0.00); Lymphocytes # (Auto) 0.6 Thou/mm3 (1.0-4.8); Lymphocytes % (Auto) 9 % (10-50); Mean Corpuscular HGB Conc 32.6 g/dl (31.0-37.0); Mean Corpuscular Hemoglobin 27.0 pg (25.0-35.0); Mean Corpuscular Volume 83 fL (80-100); Monocytes # (Auto) 0.1 Thou/mm3 (0.0-0.8); Monocytes % (Auto) 1 % (0-12); Neutrophils # (Auto) 6.2 Thou/mm3 (1.8-7.7); Neutrophils % (Auto) 89 % (37-80); Nucleated Red Blood Cell # 0.00 Thou/mm3 (0.00-0.00); Nucleated Red Blood Cell % 0 /100 WBC (0); Platelet Count 205 Thou/mm3 (140-440); RDW Standard Deviation 50.0 fL (35.1-43.9); Red Blood Count 4.11 Miln/mm3 (4.50-5.90); White Blood Count 6.9 Thou/mm3 (3.8-10.6)
[2025-11-07 12:15] LABS: Prostate Specific Antigen 4.46 ng/mL (0-4.00)
[2025-11-07 12:27] LABS: Alanine Aminotransferase 14 U/L (10-49); Albumin, Serum 4.1 gm/dL (3.5-5.0); Albumin/Globulin Ratio 1.9 (1.2-2.2); Alkaline Phosphatase 82 U/L (46-116); Anion Gap 9 (7-16); Aspartate Amino Transferase 20 U/L (0-34); BUN/Creatinine Ratio 23 Ratio (12-20); Bilirubin,Total 0.6 mg/dL (0.3-1.2); Blood Urea Nitrogen 16 mg/dL (9-23); Calcium 9.2 mg/dL (8.3-10.6); Calcium (Corrected) 9.2 mg/dL (8.5-10.1); Carbon Dioxide 26.7 mMol/L (20.0-31.0); Chloride 108 mMol/L (98-107); Creatinine (Component) 0.7 mg/dL (0.6-1.3); Globulin 2.2 gm/dL (2.3-3.5); Glucose 138 mg/dL (74-106); Osmolality,Calculated 290 (275-295); Potassium 3.9 mMol/L (3.4-5.1); Sodium 144 mMol/L (136-145); Total Protein 6.3 gm/dL (5.7-8.2); eGFR > 60 See Note
--- NOTE | 2025-12-04 03:04 | CTCFLWUP_ITS ---
Patient: ANNEL PARKS : 1985 Page 3 of 7 FOLLOW UP NOTE DATE OF SERVICE: 11/14/2025 NAME: ANNEL PARKS ACCOUNT: [id number] : 1985 AGE: 40 INTERVAL HISTORY: Patient doing well and have completed 6 cycles of docetaxel. Patient is also taking his Zytiga and prednisone along with calcium and vitamin D3. ONCOLOGY HISTORY:?[facility] Hx? DIAGNOSIS: Malignant neoplasm of prostate [ICD10] C61 DATE OF DIAGNOSIS: 03/2025 STAGE/TNM: Prostatic adenocarcinoma Donta score 9] 4+5 Grade group 6 and 6 out of the 8 cores involved 35% of the needle core tissue PSA was 961 in February 2025 and a PSA on 11/07/2025 is 4.46 TREATMENT HISTORY: Care?Plan Start?Date Cycle Day Intent Docetaxel?75mg/m2 05/15/2025 1 21 Palliative Zoledronic?Acid?4?mg 07/05/2025 1 90 Palliative Lupron?22.5?mg?q?3?mon 09/06/2025 1 90 Palliative HISTORY OF PRESENT ILLNESS: Subjective: Chief Complaint Prostate cancer follow-up, History of Present Illness Annel Parks, a 40-year-old male with recently diagnosed high-risk prostate cancer, presents for oncology evaluation and treatment planning. The patient reports feeling good overall but is here due to his cancer diagnosis. Mr. Parks's symptoms began in January 2025 when he started experiencing leg pain. X-rays were performed, leading to the discovery of cancer. On March 30, 2025, he underwent a prostate biopsy at a local facility, which revealed prostatic adenocarcinoma with a Donta score of 9 in the left lobe of the prostate. The patient denies any prior urinary symptoms, stating he would urinate normally when waking up at 4 a.m. for work. He has been taking oral medications prescribed by Dr. Rodrigez since March but has not received any injections. The patient's cancer appears to be extensive, involving multiple bones and lymph nodes, including some in the chest cavity. Despite the advanced stage of his disease, Mr. Parks reports feeling well and has even gained weight recently. He expresses a desire to visit his mother, who recently learned about his cancer diagnosis, for a week. 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 His coworker, who was also exposed, became ill and subsequently after 15 days in a coma. The patient denies any family history of prostate cancer or breast cancer. He has not experienced issues with urination, such as weak stream or dribbling, despite having an enlarged prostate. Medications and Supplements - Casodex - Taking since March - Vitamin D3 3000 IU by mouth daily - Lupron (leuprolide for depot) injection - Was prescribed but not received yet Review of Systems General: Positive for leg pain. Genitourinary: Positive for dribbling of urine and weak stream. Negative for difficulty urinating. Objective: Laboratory, Imaging, and Diagnostic Test Results - Date: March 30, 2025 - Prostate biopsy: Left lobe of the prostate showed prostatic adenocarcinoma with a Donta score of 9 - PSA: 1049 - Ferritin: 5000 OTHER MEDICAL HISTORY/CONDITIONS: Prostate cancer [facility] - 12 yrs jaycee - treated Left?ankle?surgery?-?01/23 FAMILY HISTORY: Patient?denies?family?cancer?history. SOCIAL HISTORY: Occupational?History:?Unemployed Education?Level:?Completed 8th grade Marital?Status:? Tobacco?Use:?Denies ETOH?Use:?Denies Drug?Note:?Denies Social History Note:?Lives with ; 3 sons; [id number] MEDICATIONS: 1. abiraterone - 250 mg 4 tab Daily 2. Compazine - 5 mg 5 mg Daily 3. dexamethasone - 4 mg 8 mg Daily 4. finasteride - 5 mg 1 tab Daily 5. Flomax - 0.4 mg 1 Capsule Daily 6. HYDROcodone-acetaminophen - 10-325 mg 1 - 2 tab q6 7. ondansetron - 8 mg 8 mg Daily 8. prednisone - 5 mg 1 tab twice Daily?[place] Meds? Medications Last Reconciled by Christiane Mtz MD on 11/14/2025 ALLERGIES: cephalexin REVIEW OF SYSTEMS: A complete 14-point review of systems was performed and is negative except as noted in interval history. PHYSICAL EXAMINATION:?[facility] PE? VITAL SIGNS: Temperature?98, B/P?118/74, Oxygen?Saturation?98% Weight?180?lbs (Change?since?11/09/25:?0?lbs) PAIN: 0 - No pain GENERAL APPEARANCE: Appears well, in no apparent distress, appropriately interactive. HEENT: Normocephalic, no temporal wasting, normal conjunctiva, no scleral icterus, normal hearing, lips without lesions, neck normal range of motion. CARDIOVASCULAR: Not assessed. PULMONARY: Normal respiratory effort, no respiratory distress or use of accessory muscles, speaking in full sentences, no tachypnea. EXTREMITIES: No pedal edema or cyanosis. SKIN: Normal skin appearance. NEUROLOGIC: Alert and oriented x4. PSHYCHIATRIC: Appropriate affect, mood normal, behavior normal, intact thought and speech. LABORATORY DATA: I have personally reviewed and interpreted each of the patient?s relevant lab tests, abnormal findings are below: Date 10/17/25 11/07/25 ??WHITE?BLOOD?COUNT?(Thou/mm3) 7.6 6.9 ??RED?BLOOD?COUNT?(Miln/mm3) 4.38?L 4.11?L ??HEMOGLOBIN?(gm/dl) 12.2?L 11.1?L ??HEMATOCRIT?(%) 36.8?L 34.1?L ??PLATELET?COUNT?(Thou/mm3) 199 205 ??NEUTROPHILS?%,?AUTO?(%) 92?H 89?H ??LYMPH?%,?AUTO?(%) 7?L 9?L ??NEUTROPHILS,?AUTO?(Thou/mm3) 7.1 6.2 ??GLUCOSE,RANDOM?(mg/dL) 170?H 138?H ??BLOOD?UREA?NITROGEN?(mg/dL) 15 16 ??CREATININE?(mg/dL) 0.80 0.70 ??SODIUM?(mmol/L) 141 144 ??POTASSIUM?(mmol/L) 4.4 3.9 ??CHLORIDE?(mmol/L) 108?H 108?H ??CrCl?(CandG)?(ml/min) 138.14 139.09 ??AST/SGOT?(Unit/L) 21 20 ??ALT/SGPT?(Unit/L) 14 14 ??ALKALINE?PHOSPHATASE?(Unit/L) 100 82 ??BILIRUBIN,?TOTAL?(mg/dL) 0.7 0.6 ??PROTEIN?TOTAL?(gm/dl) 6.3 6.3 ??ALBUMIN,?SERUM?(gm/dl) 4.7 4.1 ??GLOBULIN?(gm/dl) 1.6?L 2.2?L ??ALBUMIN/GLOBULIN?RATIO 2.9?H 1.9 ??CALCIUM,?SERUM?(mg/dL) 9.4 9.2 ??CALCIUM?SERUM?(CORRECTED)?(mg/dL) 9.4 9.2 ASSESSMENT/PLAN:?Felicitas Floyd Assessment/Plan? Assessment and Plan: Annel Parks, a 40-year-old male with newly diagnosed high-risk prostate cancer, presenting for oncology evaluation and treatment planning. 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 Extensive disease with chest lymph node and bone metastases on PSMA scan. Unusually young age raises concern for hereditary cancer syndrome. Excellent initial response to triplet therapy (ADT + abiraterone/prednisone + docetaxel) with >97% PSA reduction and castrate testosterone levels.[1] PLAN Systemic Therapy: ? Continue current?triplet therapy regimen?(leuprolide, abiraterone 1000 mg daily with prednisone 5 mg BID, docetaxel every 3 weeks for at least 6 cycles) - this is NCCN category 1 preferred treatment for high-volume mCSPC[2] ? Maintain ADT indefinitely to sustain castrate testosterone levels[1] ? Continue prednisone 5 mg PO BID with abiraterone (standard dosing in triplet therapy setting)[2] ? Continue vitamin D3 1000 IU daily Genetic Testing: ? Proceed with comprehensive germline and somatic testing?as planned - strongly recommended for all metastatic prostate cancer patients, especially given young age (39 years)[2-3] ? Multigene panel should include: BRCA1, BRCA2, CAMILO, PALB2, CHEK2, CDK12, FANCA, RAD51D, HOXB13, and Boucher syndrome genes (MLH1, MSH2, MSH6, PMS2)[2][4] ? Test for MSI-H/dMMR and TMB[2] ? Post-test genetic counseling strongly recommended if pathogenic variant identified[2-3] ? [place] testing for family members?critical if germline mutation detected[2][4] Monitoring: ? Physical examination and PSA every 3-6 months[1-2] ? Periodic imaging?to monitor treatment response (bone scan and CT or PSMA-PET)[2] ? Testosterone monitoring to confirm castrate levels[1] ? CBC with differential and CMP to assess treatment tolerability[5] Bone Health: ? Defer bone-strengthening medication?(denosumab or zoledronic acid) for 6 months as planned due to dental issues[2] ? Complete comprehensive dental evaluation prior to initiating osteoclast inhibitors to prevent osteonecrosis of jaw[2] ? Once dental issues resolved, initiate?denosumab 120 mg SC monthly?or zoledronic acid 4 mg IV every 3-4 weeks for skeletal-related event prevention[2] ? Target vitamin D levels 30-50 ng/mL; ensure calcium intake 9764-9696 mg daily[2] Tertiary Referral: ? Proceed with referral to [facility] or [place]?for evaluation of advanced treatment options and clinical trial eligibility[2] ? Young age, high-risk features, and potential genetic predisposition make patient ideal candidate for precision oncology approaches and novel therapeutic trials[2-3] Future Treatment Considerations: ? If?BRCA1/2 mutation identified: Consider PARP inhibitor combinations (niraparib/abiraterone, olaparib/abiraterone, or talazoparib/enzalutamide) upon progression to mCRPC[2][6] ? If?MSI-H/dMMR identified: Pembrolizumab option upon progression[2] ? Upon progression to mCRPC after ARPI and taxane:?[id number]?(lutetium PSMA therapy) is FDA-approved option[1][7] Supportive Care: ? Early integration of palliative care team for symptom management and goals of care discussions[5] ? Continue port catheter maintenance for chemotherapy administration Pain Management Assessment: Patient is currently taking hydrocodone for pain management. However, with improving PSA levels and expected disease response, pain levels should decrease. There is concern about potential overuse and risk of dependence on pain medication. Plan: - Gradually reduce hydrocodone usage to maximum 1-2 tablets per day as needed - Educate patient on risks of opioid dependence and acetaminophen toxicity - Encourage use of non-pharmacological pain management techniques - Reassess pain levels at follow-up appointments Ferritinemia Assessment: Patient's ferritin level is significantly elevated at 5000, suggesting possible anemia of chronic disease associated with advanced prostate cancer. Plan: - Monitor complete blood count during treatment - Reassess ferritin levels with follow-up labs Will check for JAK2 mutation Liver ultrasound Dental issues Assessment: Patient reports a loose tooth requiring extraction, which impacts the ability to start bone-strengthening medication for metastatic bone disease. Plan: - Refer to dentist for extraction of loose tooth and comprehensive dental evaluation - Defer bone-strengthening medication (e.g., Zometa, Prolia) for 6 months to allow for dental healing - Reassess eligibility for bone-strengthening medication in 6 months OTHER MEDICAL HISTORY/CONDITIONS: Prostate cancer Hx [facility] - 12 yrs jaycee - treated Left?ankle?surgery?-?01/23 ORDERS: Order # Description [id number] Basic Metabolic Panel [id number] Lab Appointment [id number] Infusion 1 Hour [id number] Basic Metabolic Panel [id number] Lab Appointment [id number] Infusion 1 Hour [id number] Basic Metabolic Panel [id number] Lab Appointment [id number] Infusion 1 Hour [id number] Basic Metabolic Panel [id number] Lab Appointment [id number] Infusion 1 Hour [id number] Basic Metabolic Panel [id number] Lab Appointment [id number] Infusion 1 Hour [id number] Basic Metabolic Panel [id number] Lab Appointment [id number] Infusion 1 Hour [id number] Basic Metabolic Panel [id number] Lab Appointment [id number] Infusion 1 Hour [id number] Basic Metabolic Panel [id number] Lab Appointment [id number] Infusion 1 Hour [id number] Basic Metabolic Panel [id number] Lab Appointment [id number] Infusion 1 Hour [id number] Basic Metabolic Panel [id number] Lab Appointment [id number] Infusion 1 Hour [id number] Basic Metabolic Panel [id number] Lab Appointment RETURN TO CLINIC: I reviewed the diagnosis, prognosis, and recommended treatment/procedure options with the patient (and/or their legal technology 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 We also discussed the option of no treatment and the possibility of clinical trial participation, if applicable. All questions were addressed, and they demonstrated understanding. They provided informed consent to proceed with the proposed plan of care. BILLING AND COMPLIANCE: I reviewed external records from providers outside my specialty as summarized above. I spent a total of 50 minutes on this patient?s care on the day of their visit excluding time spent related to any billed procedures. This time includes time spent with the patient as well as time spent documenting in the medical record, reviewing patients records and tests, obtaining history, placing orders, communicating with other healthcare professionals, counseling the patient, family or caregiver, and/or care coordination for the diagnoses above. Electronically Signed by: Reynaldo Floyd MD T: 3:01 AM CC: PCP: Referring: Preeti Pennington This document was completed utilizing speech recognition software. Grammatical errors, random word insertions, pronoun errors, and incomplete sentences are an occasional consequence of this system due to software limitations, ambient noise, and hardware issues. Any formal questions or concerns about the content, text or information contained within the body of this dictation should be directly addressed to the provider for clarification.
== END 2025-11-29 23:59 | disposition home or self-care (01) ==
LOC: SCTC 13:49
PROVIDERS: PCP Family Medicine; Referring Provider Family Medicine; Visit Provider Internal Medicine Hematology & Oncology
DX: Z51.11 Encounter for antineoplastic chemotherapy (principal); C61 Malignant neoplasm of prostate; C79.51 Secondary malignant neoplasm of bone; Z19.1 Hormone sensitive malignancy status; R79.0 Abnormal level of blood mineral; K08.89 Other specified disorders of teeth and supporting structures
CPT/HCPCS: 36591; 80053; 84153; 85025; 96367; 96413; 99212; 99213; A4216; J1100; J1453; J1642; J2405; J3490; J7050; J9171; G0463